=== PATIENT | female | born 1975 | race American Indian/Alaskan Native ===

== ENCOUNTER 2017-10-27 21:37 | Emergency (ER) | payer OTHER ==
[2017-10-27 21:47] VITALS: BP 152/93
[2017-10-28] MEDS ORDERED: TORADOL IM ONE (01:59)
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
== END 2017-10-28 03:13 | disposition home or self-care (01) ==
LOC: ED 21:37
DX: S39.012A Strain of muscle, fascia and tendon of lower back, initial encounter (principal); S29.012A Strain of muscle and tendon of back wall of thorax, initial encounter; R07.89 Other chest pain; K21.9 Gastro-esophageal reflux disease without esophagitis; V49.49XA Driver injured in collision with other motor vehicles in traffic accident, initial encounter; Y93.89 Activity, other specified; Y92.89 Other specified places as the place of occurrence of the external cause; Y99.8 Other external cause status
CPT/HCPCS: 96372; 99282; J1885

== ENCOUNTER 2019-02-10 14:02 | Inpatient (IN) | payer OTHER ==
[2019-02-10] MEDS ORDERED: ASPIRIN 81 MG TAB CHEW PO ONE (14:33)
[2019-02-10] MEDS ORDERED: ASPIRIN 325 MG TAB ONE (14:35)
--- NOTE | 2019-02-10 14:36 | Event Note ---
ED Screening Note Date of service: 02/10/19 Time: 14:36 ED Screening Note: Pt complains of chest pain radiating through to her back x 1 hour denies prior cardiac hx This initial assessment/diagnostic orders/clinical plan/treatment(s) is/are subject to change based on patients health status, clinical progression and re- assessment by fellow clinical providers in the ED. Further treatment and workup at subsequent clinical providers discretion. Patient/guardian urged not to elope from the ED as their condition may be serious if not clinically assessed and managed. Initial orders include: labs CXR
[2019-02-10] MEDS ORDERED: ASPIRIN 325 MG TAB PO ONE (14:53)
--- NOTE | 2019-02-10 15:08 | XRay Report ---
CHEST 2 VIEWS INDICATION: Chest Pain. COMPARISON: None. FINDINGS: Support devices: None. Heart: Within normal limits. Lungs/Pleura: No acute air space or interstitial disease. No significant pleural effusion. IMPRESSION: No acute findings. Signer Name: Thad Hinds MD Signed: 02/10/2019 3:03 PM Workstation Name: [id number]
[2019-02-10 15:34] LABS: Basophils % (Auto) 0.2 % (0.0-1.8); Eosinophils # (Auto) 0.1 K/mm3 (0.0-0.4); Eosinophils % (Auto) 0.5 % (0.0-4.3); Hematocrit 37.7 % (30.3-42.9); Hemoglobin 12.5 gm/dl (10.1-14.3); Lymphocytes # (Auto) 1.9 K/mm3 (1.2-5.4); Lymphocytes % (Auto) 17.9 % (13.4-35.0); Mean Corpuscular HGB Conc 33 % (30-34); Mean Corpuscular Volume 90 fl (79-97); Monocytes # (Auto) 0.6 K/mm3 (0.0-0.8); Monocytes % (Auto) 6.2 % (0.0-7.3); Platelet Count 336 K/mm3 (140-440); Red Blood Count 4.17 M/mm3 (3.65-5.03); Red Cell Distribution Width 14.5 % (13.2-15.2)
[2019-02-10 16:15] LABS: Alanine Aminotransferase 51 units/L (7-56); Albumin 3.7 g/dL (3.9-5); BUN/Creatinine Ratio 18; Blood Urea Nitrogen 11 mg/dL (7-17); Calcium 9.1 mg/dL (8.4-10.2); Hemolysis Index 7
--- NOTE | 2019-02-10 16:56 | Emergency Department Report ---
ED Chest Pain HPI - General Chief Complaint: Chest Pain Stated Complaint: CHEST PAIN Time Seen by Provider: 02/10/19 14:32 Source: patient Mode of arrival: Ambulatory Limitations: No Limitations - Related Data Previous Rx's Medication Instructions Recorded Last Taken Type HYDROcodone/APAP 5-325 [[place] 1 each PO Q6HR PRN #10 tablet 03/16/15 Unknown Rx 5/325] Baclofen [Lioresal] 10 mg PO TID #20 tab 10/28/17 Unknown Rx Ibuprofen [Motrin 600 MG tab] 600 mg PO Q8H PRN #30 tablet 10/28/17 Unknown Rx Allergies Allergy/AdvReac Type Severity Reaction Status Date / Time No Known Allergies Allergy Verified 09/12/14 10:06 ED Review of Systems ROS: Stated complaint: CHEST PAIN Other details as noted in HPI ED Past Medical Hx - Past Medical History Previous Medical History?: Yes Hx GERD: Yes Additional medical history: Gallstones, Vaginal delivery x 2 - Surgical History Past Surgical History?: No - Social History Smoking Status: Never Smoker - Medications Home Medications: Home Medications Medication Instructions Recorded Confirmed Last Taken Type HYDROcodone/APAP 5-325 [[place] 1 each PO Q6HR PRN #10 tablet 03/16/15 Unknown Rx 5/325] Baclofen [Lioresal] 10 mg PO TID #20 tab 10/28/17 Unknown Rx Ibuprofen [Motrin 600 MG tab] 600 mg PO Q8H PRN #30 tablet 10/28/17 Unknown Rx ED Physical Exam - General Limitations: No Limitations ED Course Vital Signs 02/10/19 14:07 Temperature 97.8 F Pulse Rate 90 Respiratory 18 Rate Blood Pressure 136/76 O2 Sat by Pulse 99 Oximetry DEL score - Del Score Age > 65: (0) No Aspirin use within the Past 7 Days: (0) No 3 or more CAD Risk Factors: (0) No 2 or more Angina events in past 24 hrs: (0) No Known CAD with more than 50% Stenosis: (0) No Elevated Cardiac Markers: (0) No ST Deviation Greater than 0.5mm: (0) No DEL Score: 0 ED Medical Decision Making - Lab Data Result diagrams: 02/10/19 15:09 02/10/19 15:09 Critical care attestation.: If time is entered above; I have spent that time in minutes in the direct care of this critically ill patient, excluding procedure time. ED Disposition Condition: Stable
[2019-02-10] MEDS ORDERED: ONDANSETRON 4 MG/2 ML INJ IV ONE (17:10)
[2019-02-10] MEDS ORDERED: SODIUM CHLORIDE 0.9% 500 ML 500 ML IV ONE (17:10)
[2019-02-10] MEDS ORDERED: MORPHINE 4 MG/1 ML INJ IV ONE ×2 (17:10→20:18)
[2019-02-10 18:44] LABS: INR 0.95 (0.87-1.13)
[2019-02-10 18:52] LABS: Alanine Aminotransferase 101 units/L (7-56); Albumin 3.6 g/dL (3.9-5); Bilirubin,Direct 0.6 mg/dL (0-0.2)
--- NOTE | 2019-02-10 19:25 | Ultrasound Report ---
ULTRASOUND ABDOMEN, COMPLETE INDICATION: ruq pain gall bladder study. COMPARISON: None available. FINDINGS: Pancreas: Normal. Abdominal Aorta: Normal. IVC: Normal. Liver: Normal. Gallbladder: Multiple gallstones. Bile ducts: Dilated. Common Bile Duct measures 12.1 mm. Right Kidney: Normal. Left Kidney: Normal. Spleen: Normal. Free fluid: None. Additional Findings: None. IMPRESSION: 1. Multiple gallstones. No wall thickening. 2. Biliary dilatation worrisome for common bile duct stone in the appropriate clinical setting. Signer Name: Thad Hinds MD Signed: 02/10/2019 7:21 PM Workstation Name: [id number]
--- NOTE | 2019-02-10 19:31 | Emergency Department Report ---
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 Presents to the ER with complaint of "gallbladder pain." Complains of substernal chest pain, [place] epigastric and right upper quadrant region, present for a few hours, intermittent, throbbing, increases with palpation, range of motion, decreases with rest and position. Occasionally the pain is so intense it takes her breath away. She indicates that she is not , denies recent travel, surgeries, oral contraceptive use. There is no complaint of headache, neck pain, lower abdominal pain, urinary symptoms, there is no extremity complaints. She also complains of right posterior flank pain. -: Gradual, hour(s) Location: chest, abdomen Radiation: abdomen Severity scale (0 -10): 3 Quality: other Consistency: other Improves with: other Worsens with: other Associated Symptoms: other - Related Data Previous Rx's Medication Instructions Recorded Last Taken Type HYDROcodone/APAP 5-325 [[place] 1 each PO Q6HR PRN #10 tablet 03/16/15 Unknown Rx 5/325] Baclofen [Lioresal] 10 mg PO TID #20 tab 10/28/17 Unknown Rx Ibuprofen [Motrin 600 MG tab] 600 mg PO Q8H PRN #30 tablet 10/28/17 Unknown Rx Allergies Allergy/AdvReac Type Severity Reaction Status Date / Time No Known Allergies Allergy Verified 09/12/14 10:06 ED Review of Systems ROS: Stated complaint: CHEST PAIN Other details as noted in HPI Constitutional: denies: fever Eyes: denies: eye discharge ENT: denies: congestion Respiratory: denies: wheezing Cardiovascular: chest pain Gastrointestinal: abdominal pain. denies: vomiting Genitourinary: denies: dysuria Musculoskeletal: back pain Skin: denies: lesions Neurological: denies: weakness Hematological/Lymphatic: denies: easy bleeding ED Past Medical Hx - Past Medical History Previous Medical History?: Yes Hx GERD: Yes Additional medical history: Gallstones, Vaginal delivery x 2 - Surgical History Past Surgical History?: No - Social History Smoking Status: Never Smoker - Medications Home Medications: Home Medications Medication Instructions Recorded Confirmed Last Taken Type HYDROcodone/APAP 5-325 [[place] 1 each PO Q6HR PRN #10 tablet 03/16/15 Unknown Rx 5/325] Baclofen [Lioresal] 10 mg PO TID #20 tab 10/28/17 Unknown Rx Ibuprofen [Motrin 600 MG tab] 600 mg PO Q8H PRN #30 tablet 10/28/17 Unknown Rx ED Physical Exam - General Limitations: No Limitations General appearance: alert, obese - Head Head exam: Present: atraumatic, normocephalic - Eye Eye exam: Present: normal appearance, EOMI. Absent: nystagmus - ENT ENT exam: Present: normal exam, normal orophraynx, mucous membranes moist, normal external ear exam - Neck Neck exam: Present: normal inspection, full ROM. Absent: tenderness, meningismus - Respiratory Respiratory exam: Present: normal lung sounds bilaterally. Absent: respiratory distress - Cardiovascular Cardiovascular Exam: Present: regular rate, normal rhythm, normal heart sounds. Absent: bradycardia, tachycardia, irregular rhythm, systolic murmur, diastolic murmur, rubs, gallop - GI/Abdominal GI/Abdominal exam: Present: soft, tenderness. Absent: distended, rigid, pulsatile mass - Extremities Exam Extremities exam: Present: normal inspection, full ROM, other (2+ pulses noted in the bilateral upper and lower extremities. The pelvis is stable. There is no long bony tenderness. The muscular compartments are soft. There is no redness, pus, streaking or erythema.). Absent: pedal edema, calf tenderness - Back Exam Back exam: Present: normal inspection, full ROM. Absent: tenderness, CVA tenderness (R), CVA tenderness (L), paraspinal tenderness, vertebral tenderness - Neurological Exam Neurological exam: Present: alert, oriented X3, normal gait, other (there is no facial droop. The tongue is midline. Extraocular movements are intact bilaterally. Speaking in full sentences. Hearing is grossly intact. 5 out of 5 strength bilateral upper and lower extremities. Sensation is intact to light touch bilateral upper and lower extremities.). Absent: motor sensory deficit - Psychiatric Psychiatric exam: Present: normal affect, normal mood - Skin Skin exam: Present: warm, dry, intact, normal color. Absent: rash ED Course Vital Signs 02/10/19 14:07 Temperature 97.8 F Pulse Rate 90 Respiratory 18 Rate Blood Pressure 136/76 O2 Sat by Pulse 99 Oximetry - Reevaluation(s) Reevaluation #1: 02/10/19 19:37 Differential diagnosis, including but not limited to: GERD, gastritis, hiatal hernia, pneumonia, biliary colic, pancreatitis, urinary tract infection Assessment and plan: 43-year-old obese female presenting with right upper quadrant pain, tenderness, reproducible chest wall pain, not tachycardic, not tachypneic, not hypoxic, no pulmonary embolism or DVT risk factors, low risk by well's criteria, perc negative Laboratories studies show nonspecific elevation in liver panel, this happened back in 2014 when the patient presented with similar symptoms, ultrasound shows dilated common bile ducts, stone in the common bile duct. We will discuss with general surgery and gastroenterology on-call. Reevaluation #2: 02/10/19 19:40 Discussed with general surgery on-call, , who agrees with plan for admission, recommends admission, IV antibiotics, gastroenterology consultation, MRCP. We will order antibiotics, discuss with GI. We will defer to inpatient team to sit up MRCP. We'll discuss with patient discussed plan of care. Unlikely to be acute coronary syndrome, troponin negative 2, EKG is unchanged 3, based off of the heart score, patient is at low risk for major first cardiac event. Reevaluation #3: 02/10/19 19:45 Discussed with gastroenterology on-call, Dr. Taylor. Agreed to this plan of c are, indicates his group will follow in consultation. Hospital physician is paced to arrange admission. Discussed plan of care with patient, she is amenable to admission. perc negative low risk by wells criteria Reevaluation #4: 02/10/19 19:47 Dr Nielson to admit ED Medical Decision Making - Lab Data Result diagrams: 02/10/19 15:09 02/10/19 15:09 Vital Signs 02/10/19 14:07 Temperature 97.8 F Pulse Rate 90 Respiratory 18 Rate Blood Pressure 136/76 O2 Sat by Pulse 99 Oximetry Lab Results 02/10/19 02/10/19 02/10/19 Range/Units 15:09 15:09 17:54 WBC 10.5 (4.5-11.0) K/mm3 RBC 4.17 (3.65-5.03) M/mm3 Hgb 12.5 (10.1-14.3) gm/dl Hct 37.7 (30.3-42.9) % MCV 90 (79-97) fl MCH 30 (28-32) pg MCHC 33 (30-34) % RDW 14.5 (13.2-15.2) % Plt Count 336 (140-440) K/mm3 Lymph % (Auto) 17.9 (13.4-35.0) % [place] % (Auto) 6.2 (0.0-7.3) % Eos % (Auto) 0.5 (0.0-4.3) % Baso % (Auto) 0.2 (0.0-1.8) % Lymph # 1.9 (1.2-5.4) K/mm3 [place] # 0.6 (0.0-0.8) K/mm3 Eos # 0.1 (0.0-0.4) K/mm3 Baso # 0.0 (0.0-0.1) K/mm3 Seg Neutrophils % 75.2 H (40.0-70.0) % Seg Neutrophils # 7.9 H (1.8-7.7) K/mm3 PT 12.8 (12.2-14.9) Sec. INR 0.95 (0.87-1.13) Sodium 138 (137-145) mmol/L Potassium 3.7 (3.6-5.0) mmol/L Chloride 103.7 (98-107) mmol/L Carbon Dioxide 22 (22-30) mmol/L Anion Gap 16 mmol/L BUN 11 (7-17) mg/dL Creatinine 0.6 L (0.7-1.2) mg/dL Estimated GFR > 60 ml/min BUN/Creatinine Ratio 18 % Glucose 118 H (65-100) mg/dL Calcium 9.1 (8.4-10.2) mg/dL Magnesium (1.7-2.3) mg/dL Total Bilirubin 0.90 (0.1-1.2) mg/dL Direct Bilirubin (0-0.2) mg/dL Indirect Bilirubin mg/dL AST 82 H (5-40) units/L ALT 51 (7-56) units/L Alkaline Phosphatase 94 (35-129) units/L Total Creatine Kinase (30-135) units/L Troponin T < 0.010 (0.00-0.029) ng/mL Total Protein 7.3 (6.3-8.2) g/dL Albumin 3.7 L (3.9-5) g/dL Albumin/Globulin Ratio 1.0 % Lipase (13-60) units/L HCG, Quant (0-4) mIU/mL 02/10/19 02/10/19 Range/Units 17:54 17:54 WBC (4.5-11.0) K/mm3 RBC (3.65-5.03) M/mm3 Hgb (10.1-14.3) gm/dl Hct (30.3-42.9) % MCV (79-97) fl MCH (28-32) pg MCHC (30-34) % RDW (13.2-15.2) % Plt Count (140-440) K/mm3 Lymph % (Auto) (13.4-35.0) % [place] % (Auto) (0.0-7.3) % Eos % (Auto) (0.0-4.3) % Baso % (Auto) (0.0-1.8) % Lymph # (1.2-5.4) K/mm3 [place] # (0.0-0.8) K/mm3 Eos # (0.0-0.4) K/mm3 Baso # (0.0-0.1) K/mm3 Seg Neutrophils % (40.0-70.0) % Seg Neutrophils # (1.8-7.7) K/mm3 PT (12.2-14.9) Sec. INR (0.87-1.13) Sodium (137-145) mmol/L Potassium (3.6-5.0) mmol/L Chloride (98-107) mmol/L Carbon Dioxide (22-30) mmol/L Anion Gap mmol/L BUN (7-17) mg/dL Creatinine (0.7-1.2) mg/dL Estimated GFR ml/min BUN/Creatinine Ratio % Glucose (65-100) mg/dL Calcium (8.4-10.2) mg/dL Magnesium 2.00 (1.7-2.3) mg/dL Total Bilirubin 1.00 (0.1-1.2) mg/dL Direct Bilirubin 0.6 H (0-0.2) mg/dL Indirect Bilirubin 0.4 mg/dL AST 155 H (5-40) units/L ALT 101 H (7-56) units/L Alkaline Phosphatase 97 (35-129) units/L Total Creatine Kinase 313 H (30-135) units/L Troponin T < 0.010 (0.00-0.029) ng/mL Total Protein 7.1 (6.3-8.2) g/dL Albumin 3.6 L (3.9-5) g/dL Albumin/Globulin Ratio 1.0 % Lipase 37 (13-60) units/L HCG, Quant < 2 (0-4) mIU/mL - EKG Data -: EKG Interpreted by [place] EKG shows normal: sinus rhythm Rate: normal - EKG Data 02/10/19 19:36 EKG #1 shows a sinus rhythm, 84 bpm, normal axis, normal intervals, unremarkable EKG, poor R-wave progression, not consistent with ST elevation myocardial infarction. EKG #2 was unchanged from prior. There is motion artifact. EKG #3 is unchanged from prior. Both/all 3 EKGs unchanged from prior EKG from 2013. There is no STEMI. - Radiology Data Radiology results: report reviewed, image reviewed Print Report Referring Physician: SUMANTH BLUM Patient Name: DIA YOUNG Date of : 1975 Sex: Female Report Date: 2019-02-10 Report Status: Finalized Findings [facility] [address] [place] [address] Ultrasound Report Signed Patient: DIA YOUNG MR#: [id number] : 1975 Acct:[id number] Age/Sex: 43 / F ADM Date: 02/10/19 Loc: ED Attending Dr: Ordering Physician: SUMANTH BLUM MD Date of Service: 02/10/19 Procedure(s): US abdomen limited Accession Number(s): [id number] cc: SUMANTH BLUM MD ULTRASOUND ABDOMEN, COMPLETE INDICATION: ruq pain gall bladder study. COMPARISON: None available. FINDINGS: Pancreas: Normal. Abdominal Aorta: Normal. IVC: Normal. Liver: Normal. Gallbladder: Multiple gallstones. Bile ducts: Dilated. Common Bile Duct measures 12.1 mm. Right Kidney: Normal. Left Kidney: Normal. Spleen: Normal. Free fluid: None. Additional Findings: None. IMPRESSION: 1. Multiple gallstones. No wall thickening. 2. Biliary dilatation worrisome for common bile duct stone in the appropriate clinical setting. Signer Name: Thad Hinds MD Signed: 02/10/2019 7:21 PM Workstation Name: [id number] Transcribed By: RAULITO Dictated By: Thad Hinds MD Electronically Authenticated By: Thad Hinds MD Signed Date/Time: 02/10/19 192 Print Report Referring Physician: LUCIANA LARSON Patient Name: DIA YOUNG Date of : 1975 Sex: Female Report Date: 2019-02-10 Report Status: Finalized Findings [address] [address] XRay Report Signed Patient: DIA YOUNG MR#: [id number] : 1975 Acct:[id number] Age/Sex: 43 / F ADM Date: 02/10/19 Loc: ED Attending Dr: Ordering Physician: LUCIANA LARSON Date of Service: 02/10/19 Procedure(s): XR chest routine 2V Accession Number(s): [id number] cc: LUCIANA LARSON Fluoro Time In Minutes: CHEST 2 VIEWS INDICATION: Chest Pain. COMPARISON: None. FINDINGS: Support devices: None. Heart: Within normal limits. Lungs/Pleura: No acute air space or interstitial disease. No significant pleural effusion. IMPRESSION: No acute findings. Signer Name: Thad Hinds MD Signed: 02/10/2019 3:03 PM Workstation Name: [id number] Transcribed By: RAULITO Dictated By: Thad Hinds MD Electronically Authenticated By: Thad Hinds MD Signed Date/Time: 02/10/19 1503 DD/ 1503 Critical care attestation.: If time is entered above; I have spent that time in minutes in the direct care of this critically ill patient, excluding procedure time. ED Disposition Clinical Impression: Common bile duct calculus, Transaminitis Disposition: DC-09 OP ADMIT IP TO THIS HOSP Is pt being admited?: Yes Condition: Good Referrals: PRIMARY CARE,MD [Primary Care Provider] - 3-5 Days
[2019-02-10] MEDS ORDERED: MORPHINE 4 MG/1 ML INJ ONE (20:08)
[2019-02-10] MEDS ORDERED: ACETAMINOPHEN 325 MG TAB PO PRN (20:10)
[2019-02-10] MEDS ORDERED: MORPHINE 2 MG/1 ML INJ IV PRN (20:14)
[2019-02-10] MEDS ORDERED: METOCLOPRAMIDE 10 MG/2 ML INJ IV PRN (20:14)
[2019-02-10] MEDS ORDERED: SODIUM CHLORIDE 0.9% 1000 ML 1,000 ML IV SCH (20:15)
--- NOTE | 2019-02-10 21:47 | History and Physical Report ---
<RUDDCORTEZ Camille - Last Filed: 02/10/19 21:33> History of Present Illness Date of examination: 02/10/19 Date of admission: 02/10/19 19:47 Chief complaint: Abdominal pain, nausea History of present illness: 43-year-old -[place]onegas[place] female with history of biliary colic, GERD, gallstones and morbid obesity who presents to [facility] with complaints of nausea, and abdominal pain since this morning. Patient states that she has been exper iencing nausea, abdominal pain and chest pain since this morning. Her abdominal pain is located in the right upper quadrant and epigastric region. The pain started out intermittently, but as the day progressed it worsened and it is now constant. She describes her abdominal pain as throbbing and rates it 10/10. Pain is aggravated with palpation and relieved with rest. Patient was asked to identify and describe chest pain she pointed to the right upper quadrant and epigastric region, and states that the pain feels similar to the last time she had gallstones. EKG unrevealing for acute ischemic abnormalities and troponins negative. Given patient's low cardiac risk factors and location of pain it is highly unlikely patient is having an acute UT. Will defer additional cardiac work-up if pain persists or worsens. Past History Past Medical History: GERD, other (Morbid obesity, biliary colic, gallstones) Past Surgical History: No surgical history Social history: lives with family. denies: smoking, alcohol abuse Family history: no significant family history Medications and Allergies Allergies Allergy/AdvReac Type Severity Reaction Status Date / Time No Known Allergies Allergy Verified 09/12/14 10:06 Active Meds: Active Medications Acetaminophen (Tylenol) 650 mg PO Q4H PRN PRN Reason: Pain MILD(1-3)/Fever >100.5/[place] Heparin Sodium (Porcine) (Heparin) 5,000 unit SUB-Q Q12HR LESLY Sodium Chloride (Nacl 0.9% 1000 Ml) 1,000 mls @ 75 mls/hr IV DIRECT LESLY Stop: 02/11/19 11:00 Levofloxacin/Dextrose (Levaquin 500mg/100ml) 500 mg in 100 mls @ 100 mls/hr IV Q24H LESLY; Protocol Metronidazole (Flagyl 500 Mg/100 Ml) 500 mg in 100 mls @ 100 mls/hr IV Q8HR LESLY; Protocol Metoclopramide HCl (Reglan) 10 mg IV Q6H PRN PRN Reason: Nausea And Vomiting Morphine Sulfate (Morphine) 2 mg IV Q4H PRN PRN Reason: Pain, Moderate (4-6) Ondansetron HCl (Zofran) 4 mg IV Q6H PRN PRN Reason: Nausea And Vomiting Pantoprazole Sodium (Protonix) 40 mg IV BID LES[facility] Sodium Chloride (Sodium Chloride Flush Syringe 10 Ml) 10 ml IV BID LES[facility] Sodium Chloride (Sodium Chloride Flush Syringe 10 Ml) 10 ml IV PRN PRN PRN Reason: LINE FLUSH Review of Systems All systems: negative Cardiovascular: chest pain Gastrointestinal: abdominal pain, nausea Exam - Physical Exam Narrative exam: Physical exam General appearance: Present: Moderate discomfort,, alert and oriented 3, obese, well-developed, adult female - EENT Eyes: Present: PERRL, EOM intact ENT: hearing intact, normal dentition - Neck Neck: Present: supple, normal ROM - Respiratory Respiratory effort: Non-labored Respiratory: Clear throughout - Cardiovascular Heart rate: 84 (bpm) Rhythm: Sinus rhythm Heart Sounds: Present: S1 & S2. Absent: rub, click - Extremities Extremities: no ischemia, pulses intact, - Peripheral Assessment Peripheral Pulses: within normal limits - Abdominal General gastrointestinal: soft, tenderness to RUQ and epigastric , normal bowel sounds - Integumentary Integumentary: Present: warm, dry - Musculoskeletal Musculoskeletal: Able to move all extremities -Neurological Neurological: CN II-XII intact - Psychiatric Psychiatric:cooperative - Constitutional Vitals: Temp Pulse Resp BP Pulse Ox 97.8 F 90 18 136/76 99 02/10/19 14:07 02/10/19 14:07 02/10/19 14:07 02/10/19 14:07 02/10/19 14:07 Results - Labs CBC & Chem 7: 02/10/19 15:09 02/10/19 15:09 Labs: Laboratory Last Values WBC 10.5 K/mm3 (4.5-11.0) 02/10/19 15:09 RBC 4.17 M/mm3 (3.65-5.03) 02/10/19 15:09 Hgb 12.5 gm/dl (10.1-14.3) 02/10/19 15:09 Hct 37.7 % (30.3-42.9) 02/10/19 15:09 MCV 90 fl (79-97) 02/10/19 15:09 MCH 30 pg (28-32) 02/10/19 15:09 MCHC 33 % (30-34) 02/10/19 15:09 RDW 14.5 % (13.2-15.2) 02/10/19 15:09 Plt Count 336 K/mm3 (140-440) 02/10/19 15:09 Lymph % (Auto) 17.9 % (13.4-35.0) 02/10/19 15:09 [place] % (Auto) 6.2 % (0.0-7.3) 02/10/19 15:09 Eos % (Auto) 0.5 % (0.0-4.3) 02/10/19 15:09 Baso % (Auto) 0.2 % (0.0-1.8) 02/10/19 15:09 Lymph # 1.9 K/mm3 (1.2-5.4) 02/10/19 15:09 [place] # 0.6 K/mm3 (0.0-0.8) 02/10/19 15:09 Eos # 0.1 K/mm3 (0.0-0.4) 02/10/19 15:09 Baso # 0.0 K/mm3 (0.0-0.1) 02/10/19 15:09 Seg Neutrophils % 75.2 % (40.0-70.0) H 02/10/19 15:09 Seg Neutrophils # 7.9 K/mm3 (1.8-7.7) H 02/10/19 15:09 PT 12.8 Sec. (12.2-14.9) 02/10/19 17:54 INR 0.95 (0.87-1.13) 02/10/19 17:54 Sodium 138 mmol/L (137-145) 02/10/19 15:09 Potassium 3.7 mmol/L (3.6-5.0) 02/10/19 15:09 Chloride 103.7 mmol/L (98-107) 02/10/19 15:09 Carbon Dioxide 22 mmol/L (22-30) 02/10/19 15:09 Anion Gap 16 mmol/L 02/10/19 15:09 BUN 11 mg/dL (7-17) 02/10/19 15:09 Creatinine 0.6 mg/dL (0.7-1.2) L 02/10/19 15:09 Estimated GFR > 60 ml/min 02/10/19 15:09 BUN/Creatinine Ratio 18 % 02/10/19 15:09 Glucose 118 mg/dL (65-100) H 02/10/19 15:09 Calcium 9.1 mg/dL (8.4-10.2) 02/10/19 15:09 Magnesium 2.00 mg/dL (1.7-2.3) 02/10/19 17:54 Total Bilirubin 1.00 mg/dL (0.1-1.2) 02/10/19 17:54 Direct Bilirubin 0.6 mg/dL (0-0.2) H 02/10/19 17:54 Indirect Bilirubin 0.4 mg/dL 02/10/19 17:54 AST 155 units/L (5-40) H 02/10/19 17:54 ALT 101 units/L (7-56) H 02/10/19 17:54 Alkaline Phosphatase 97 units/L (35-129) 02/10/19 17:54 Total Creatine Kinase 313 units/L (30-135) H 02/10/19 17:54 Troponin T < 0.010 ng/mL (0.00-0.029) 02/10/19 17:54 Total Protein 7.1 g/dL (6.3-8.2) 02/10/19 17:54 Albumin 3.6 g/dL (3.9-5) L 02/10/19 17:54 Albumin/Globulin Ratio 1.0 % 02/10/19 17:54 Lipase 37 units/L (13-60) 02/10/19 17:54 HCG, Quant < 2 mIU/mL (0-4) 02/10/19 17:54 - Imaging and Cardiology Imaging and Cardiology: CXR: FINDINGS: Support devices: None. Heart: Within normal limits. Lungs/Pleura: No acute air space or interstitial disease. No significant pleural effusion. IMPRESSION: No acute findings. ABD US: FINDINGS: Pancreas: Normal. Abdominal Aorta: Normal. IVC: Normal. Liver: Normal. Gallbladder: Multiple gallstones. Bile ducts: Dilated. Common Bile Duct measures 12.1 mm. Right Kidney: Normal. Left Kidney: Normal. Spleen: Normal. Free fluid: None. Additional Findings: None. IMPRESSION: 1. Multiple gallstones. No wall thickening. 2. Biliary dilatation worrisome for common bile duct stone in the appropriate clinical setting. Assessment and Plan Assessment and plan: 43-year-old -[place]one[place] female with history of biliary colic, GERD, gallstones and morbid obesity who presents to [facility] with complaints of nausea, and abdominal pain since this morning. Choledocholithiasis -Abdominal ultrasound showed: Multiple gallstones abd Biliary dilatation worrisome for common bile duct stone -Hx gallstones -MRCP pending -NPO -IVF -On IV abx -Continue supportive care -GI consulted -General Surgery Consulted Acute Addominal Pain -Related to Choledocholithiasis -Continue supportive care Elevated liver enzymes -AST and ALT elevated likely due to Choledocholithiasis -Will continue to monitor -GI following GERD -IV Protonix BID Morbid obesity -BMI 46.6kg -Diet and lifestyle modifications -May benefit from OP weight mgmt program DVT PPX -On Heparin Advance Directives: No VTE prophylaxis?: Chemical Plan of care discussed with patient/family: Yes <MALENA OTT - Last Filed: 02/11/19 05:29> History of Present Illness Date of admission: 02/10/19 19:47 Medications and Allergies Active Meds: Active Medications Acetaminophen (Tylenol) 650 mg PO Q4H PRN PRN Reason: Pain MILD(1-3)/Fever >100.5/[place] Heparin Sodium (Porcine) (Heparin) 5,000 unit SUB-Q Q12HR LESLY Last Admin: 02/10/19 23:56 Dose: 5,000 unit Documented by: Sodium Chloride (Nacl 0.9% 1000 Ml) 1,000 mls @ 75 mls/hr IV DIRECT LESLY Stop: 02/11/19 11:00 Levofloxacin/Dextrose (Levaquin 500mg/100ml) 500 mg in 100 mls @ 100 mls/hr IV Q24H LESLY; Protocol Metronidazole (Flagyl 500 Mg/100 Ml) 500 mg in 100 mls @ 100 mls/hr IV Q8HR LESLY; Protocol Last Admin: 02/10/19 23:54 Dose: 100 mls/hr Documented by: Metoclopramide HCl (Reglan) 10 mg IV Q6H PRN PRN Reason: Nausea And Vomiting Morphine Sulfate (Morphine) 2 mg IV Q4H PRN PRN Reason: Pain, Moderate (4-6) Last Admin: 02/10/19 22:20 Dose: 2 mg Documented by: Ondansetron HCl (Zofran) 4 mg IV Q6H PRN PRN Reason: Nausea And Vomiting Pantoprazole Sodium (Protonix) 40 mg IV BID [facility] Last Admin: 02/10/19 23:56 Dose: 40 mg Documented by: Sodium Chloride (Sodium Chloride Flush Syringe 10 Ml) 10 ml IV BID [facility] Last Admin: 02/10/19 23:56 Dose: 10 ml Documented by: Sodium Chloride (Sodium Chloride Flush Syringe 10 Ml) 10 ml IV PRN PRN PRN Reason: LINE FLUSH Exam - Constitutional Vitals: Temp Pulse Resp BP Pulse Ox 98.0 F 101 H 17 154/91 98 02/11/19 00:30 02/11/19 00:30 02/11/19 00:30 02/11/19 00:30 02/11/19 00:30 Results - Labs CBC & Chem 7: 02/10/19 15:09 02/10/19 15:09 Labs: Laboratory Last Values WBC 10.5 K/mm3 (4.5-11.0) 02/10/19 15:09 RBC 4.17 M/mm3 (3.65-5.03) 02/10/19 15:09 Hgb 12.5 gm/dl (10.1-14.3) 02/10/19 15:09 Hct 37.7 % (30.3-42.9) 02/10/19 15:09 MCV 90 fl (79-97) 02/10/19 15:09 MCH 30 pg (28-32) 02/10/19 15:09 MCHC 33 % (30-34) 02/10/19 15:09 RDW 14.5 % (13.2-15.2) 02/10/19 15:09 Plt Count 336 K/mm3 (140-440) 02/10/19 15:09 Lymph % (Auto) 17.9 % (13.4-35.0) 02/10/19 15:09 [place] % (Auto) 6.2 % (0.0-7.3) 02/10/19 15:09 Eos % (Auto) 0.5 % (0.0-4.3) 02/10/19 15:09 Baso % (Auto) 0.2 % (0.0-1.8) 02/10/19 15:09 Lymph # 1.9 K/mm3 (1.2-5.4) 02/10/19 15:09 [place] # 0.6 K/mm3 (0.0-0.8) 02/10/19 15:09 Eos # 0.1 K/mm3 (0.0-0.4) 02/10/19 15:09 Baso # 0.0 K/mm3 (0.0-0.1) 02/10/19 15:09 Seg Neutrophils % 75.2 % (40.0-70.0) H 02/10/19 15:09 Seg Neutrophils # 7.9 K/mm3 (1.8-7.7) H 02/10/19 15:09 PT 12.8 Sec. (12.2-14.9) 02/10/19 17:54 INR 0.95 (0.87-1.13) 02/10/19 17:54 Sodium 138 mmol/L (137-145) 02/10/19 15:09 Potassium 3.7 mmol/L (3.6-5.0) 02/10/19 15:09 Chloride 103.7 mmol/L (98-107) 02/10/19 15:09 Carbon Dioxide 22 mmol/L (22-30) 02/10/19 15:09 Anion Gap 16 mmol/L 02/10/19 15:09 BUN 11 mg/dL (7-17) 02/10/19 15:09 Creatinine 0.6 mg/dL (0.7-1.2) L 02/10/19 15:09 Estimated GFR > 60 ml/min 02/10/19 15:09 BUN/Creatinine Ratio 18 % 02/10/19 15:09 Glucose 118 mg/dL (65-100) H 02/10/19 15:09 Calcium 9.1 mg/dL (8.4-10.2) 02/10/19 15:09 Magnesium 2.00 mg/dL (1.7-2.3) 02/10/19 17:54 Total Bilirubin 1.00 mg/dL (0.1-1.2) 02/10/19 17:54 Direct Bilirubin 0.6 mg/dL (0-0.2) H 02/10/19 17:54 Indirect Bilirubin 0.4 mg/dL 02/10/19 17:54 AST 155 units/L (5-40) H 02/10/19 17:54 ALT 101 units/L (7-56) H 02/10/19 17:54 Alkaline Phosphatase 97 units/L (35-129) 02/10/19 17:54 Total Creatine Kinase 313 units/L (30-135) H 02/10/19 17:54 Troponin T < 0.010 ng/mL (0.00-0.029) 02/10/19 17:54 Total Protein 7.1 g/dL (6.3-8.2) 02/10/19 17:54 Albumin 3.6 g/dL (3.9-5) L 02/10/19 17:54 Albumin/Globulin Ratio 1.0 % 02/10/19 17:54 Lipase 37 units/L (13-60) 02/10/19 17:54 HCG, Quant < 2 mIU/mL (0-4) 02/10/19 17:54 Assessment and Plan Assessment and plan: Patient seen and examined, agree with plan as stated above. In addition aad cardiac enzymes
[2019-02-10] MEDS ORDERED: MORPHINE 2 MG/1 ML INJ ONE (22:14)
[2019-02-10] MEDS ORDERED: PANTOPRAZOLE 40 MG INJ IV ONE (23:46)
[2019-02-10] MEDS ORDERED: metroNIDAZOLE/NS 500 MG/100 ML 500 MG/100 ML BAG IV ONE (23:46)
[2019-02-10] MEDS ORDERED: HEPARIN 5,000 UNIT/1 ML VIAL ONE (23:47)
[2019-02-10] MEDS: metroNIDAZOLE/NS 500 MG/100 ML 500 MG/100 ML BAG IV SCH (23:54)
[2019-02-10] MEDS: PANTOPRAZOLE 40 MG INJ IV SCH (23:56)
[2019-02-10] MEDS: HEPARIN 5,000 UNIT/1 ML VIAL SUB-Q SCH (23:56)
[2019-02-11 06:21] LABS: Basophils % (Auto) 0.5 % (0.0-1.8); Eosinophils % (Auto) 0.2 % (0.0-4.3); Hematocrit 35.4 % (30.3-42.9); Hemoglobin 11.8 gm/dl (10.1-14.3); Lymphocytes # (Auto) 1.4 K/mm3 (1.2-5.4); Lymphocytes % (Auto) 18.3 % (13.4-35.0); Mean Corpuscular HGB Conc 33 % (30-34); Mean Corpuscular Volume 89 fl (79-97); Monocytes # (Auto) 0.3 K/mm3 (0.0-0.8); Monocytes % (Auto) 3.6 % (0.0-7.3); Platelet Count 326 K/mm3 (140-440); Red Blood Count 3.98 M/mm3 (3.65-5.03); Red Cell Distribution Width 14.2 % (13.2-15.2)
[2019-02-11] MEDS: metroNIDAZOLE/NS 500 MG/100 ML 500 MG/100 ML BAG IV SCH ×3 (06:23→21:58)
[2019-02-11 06:45] LABS: BUN/Creatinine Ratio 15; Blood Urea Nitrogen 9 mg/dL (7-17); Calcium 8.4 mg/dL (8.4-10.2); Hemolysis Index 4
[2019-02-11 07:13] LABS: Creatine Kinase MB 1.4 ng/mL (0.0-4.0)
--- NOTE | 2019-02-11 09:18 | Progress Note ---
Assessment and Plan Full consult dictated. 43 y/o female admitted secondary to epig abd pain. N no V GB US - stones and 12 mm CBD. no evidence of GB wall inflammation or pericholecystic fluid Non tender at present. Morbidly obese female. biliary colic. r/o choledocolithiasis no evidence of acute cholecystitis at this time. Keep NPO except for ice chips and meds awaiting MRCP findings. will follow. Chief complaint: Abdominal pain, nausea History of present illness: 43-year-old -[place] female with history of biliary colic, GERD, gallstones and morbid obesity who presents to [facility] with complaints of nausea, and abdominal pain since this morning. Patient states that she has been experiencing nausea, abdominal pain and chest pain since this morning. Her abdominal pain is located in the right upper quadrant and epigastric region. The pain started out intermittently, but as the day progressed it worsened and it is now constant. She describes her abdominal pain as throbbing and rates it 10/10. Pain is aggravated with palpation and relieved with rest. Patient was asked to identify and describe chest pain she pointed to the right upper quadrant and epigastric region, and states that the pain feels similar to the last time she had gallstones. EKG unrevealing for acute ischemic abnormalities and troponins negative. Given patient's low cardiac risk factors and location of pain it is highly unlikely patient is having an acute [place]. Will defer additional cardiac work-up if pain persists or worsens. Past History Past Medical History: GERD, other (Morbid obesity, biliary colic, gallstones) Past Surgical History: No surgical history Social history: lives with family. denies: smoking, alcohol abuse Family history: no significant family history Selected Entries 02/11/19 08:15 Temperature 98.1 F Pulse Rate 91 H Respiratory 18 Rate Blood Pressure 117/61 Laboratory Tests 02/10/19 02/11/19 17:54 05:39 WBC 7.9 Hgb 11.8 Hct 35.4 Total Bilirubin 1.00 Direct Bilirubin 0.6 H AST 155 H ALT 101 H Alkaline Phosphatase 97 Lipase 37 Objective Vital Signs - 12hr 02/10/19 02/10/19 02/10/19 21:30 21:45 22:01 Temperature Pulse Rate 88 97 H 94 H Respiratory 13 17 12 Rate Blood Pressure 173/105 170/95 146/80 O2 Sat by Pulse 100 100 100 Oximetry 01/04/20 01/04/20 01/04/20 22:15 22:30 22:45 Temperature Pulse Rate 95 H 93 H 91 H Respiratory 16 13 13 Rate Blood Pressure 158/103 152/100 167/98 O2 Sat by Pulse 100 100 100 Oximetry 02/10/19 02/10/19 02/11/19 23:00 23:15 00:21 Temperature 97.8 F Pulse Rate 88 86 86 Respiratory 13 13 13 Rate Blood Pressure 158/96 150/96 O2 Sat by Pulse 100 100 100 Oximetry 02/11/19 02/11/19 02/11/19 00:30 04:24 08:15 Temperature 98.0 F 98.0 F 98.1 F Pulse Rate 101 H 99 H 91 H Respiratory 17 17 18 Rate Blood Pressure 154/91 110/68 117/61 O2 Sat by Pulse 98 99 99 Oximetry - Labs 02/11/19 05:39 02/11/19 05:39 Diabetes panel 02/10/19 02/10/19 02/11/19 Range/Units 15:09 17:54 05:39 Sodium 138 140 (137-145) mmol/L Potassium 3.7 3.8 (3.6-5.0) mmol/L Chloride 103.7 106.1 (98-107) mmol/L Carbon Dioxide 22 23 (22-30) mmol/L BUN 11 9 (7-17) mg/dL Creatinine 0.6 L 0.6 L (0.7-1.2) mg/dL Glucose 118 H 118 H (65-100) mg/dL Calcium 9.1 8.4 (8.4-10.2) mg/dL AST 82 H 155 H (5-40) units/L ALT 51 101 H (7-56) units/L Alkaline Phosphatase 94 97 (35-129) units/L Total Protein 7.3 7.1 (6.3-8.2) g/dL Albumin 3.7 L 3.6 L (3.9-5) g/dL Calcium panel 02/10/19 02/10/19 02/11/19 Range/Units 15:09 17:54 05:39 Calcium 9.1 8.4 (8.4-10.2) mg/dL Albumin 3.7 L 3.6 L (3.9-5) g/dL Pituitary panel 02/10/19 02/11/19 Range/Units 15:09 05:39 Sodium 138 140 (137-145) mmol/L Potassium 3.7 3.8 (3.6-5.0) mmol/L Chloride 103.7 106.1 (98-107) mmol/L Carbon Dioxide 22 23 (22-30) mmol/L BUN 11 9 (7-17) mg/dL Creatinine 0.6 L 0.6 L (0.7-1.2) mg/dL Glucose 118 H 118 H (65-100) mg/dL Calcium 9.1 8.4 (8.4-10.2) mg/dL Adrenal panel 02/10/19 02/10/19 02/11/19 Range/Units 15:09 17:54 05:39 Sodium 138 140 (137-145) mmol/L Potassium 3.7 3.8 (3.6-5.0) mmol/L Chloride 103.7 106.1 (98-107) mmol/L Carbon Dioxide 22 23 (22-30) mmol/L BUN 11 9 (7-17) mg/dL Creatinine 0.6 L 0.6 L (0.7-1.2) mg/dL Glucose 118 H 118 H (65-100) mg/dL Calcium 9.1 8.4 (8.4-10.2) mg/dL Total Bilirubin 0.90 1.00 (0.1-1.2) mg/dL AST 82 H 155 H (5-40) units/L ALT 51 101 H (7-56) units/L Alkaline Phosphatase 94 97 (35-129) units/L Total Protein 7.3 7.1 (6.3-8.2) g/dL Albumin 3.7 L 3.6 L (3.9-5) g/dL
--- NOTE | 2019-02-11 10:12 | Consultation ---
REASON FOR CONSULTATION: Biliary colic, rule out choledocholithiasis. HISTORY OF PRESENT ILLNESS: The patient is a 43-year-old morbidly obese female who presented to the Emergency Room with recent onset of epigastric abdominal pain radiating to her back and chest. States some nausea, but no vomiting. PAST MEDICAL HISTORY: Negative. PAST SURGICAL HISTORY: Negative. ALLERGIES: No known allergies. MEDICATIONS: No medications. FAMILY HISTORY: Diabetes. SOCIAL HISTORY: Occasional wine intake. Denies any smoking. PHYSICAL EXAMINATION: GENERAL: At this time reveals the patient to be awake, alert, cooperative, in no acute distress. States she is feeling " Currently, sitting up, watching TV. VITAL SIGNS: Show her to be afebrile with a temperature of 98, blood pressure is 117/61, pulse of 91, respirations of 18. HEENT: Pupils are equal and reactive to light and accommodation. Sclerae are nonicteric. ABDOMEN: Examination of the abdomen reveals to be morbidly obese. There is minimal epigastric tenderness that can be elicited at this time. The rest of the abdomen is soft and nontender. LABORATORY DATA: Lab work at present includes a CBC, which shows a white count of and 7.9, H and H is 11 and 35.4. Electrolytes are essentially within normal limits. Glucose is 118. LFTs are borderline elevated including an AST of 115, ALT of 101, alkaline phosphatase is 97, total bilirubin is 1 with a direct of 0.6. Lipase is normal at 37. A gallbladder ultrasound has been performed, which reveals multiple gallstones, but no gallbladder wall thickening or pericholecystic fluid. Common bile duct is noted to be slightly dilated at 12 mm. IMPRESSION: At this time is that of a 43-year-old morbidly obese female with evidence of gallstones and borderline dilated common bile duct, but no evidence of acute cholecystitis. RECOMMENDATIONS: At this time is to keep the patient n.p.o. except for ice chips and meds. Continue empiric Levaquin. We will await MRCP findings, which I will await MRCP findings, whose study has already been ordered and apparently scheduled for Tuesday. If MRCP does indeed show choledocholithiasis, then would recommend a GI evaluation for ERCP and extraction. I will follow closely with you. Thank you very much for consultation. [facility]# [id number] IZABELLA/DIXON
[2019-02-11] MEDS: HEPARIN 5,000 UNIT/1 ML VIAL SUB-Q SCH ×2 (10:16→21:59)
--- NOTE | 2019-02-11 10:21 | Gastroenterology Consultation ---
History of Present Illness - Reason for Consult Consult date: 02/11/19 abdominal pain, dilated cbd Requesting physician: SUMANTH BLUM - History of Present Illness The patient is a 43 yo aaf who presents with abdominal pain. pt developed severe epigastric/right sided abd pain for 2-3 hours prior to admission. She has a h/o similar, less severe episodes of abd pain in the past. This first began in 2009, attributed to gallstones, but has not had recurrent pain for the past 2-3 years until prior to admission. + nausea, no emesis. denies fevers/chills. On admission, pt found to have elevation in liver enzymes with US showing dilated CBD to 12 mm. afebrile with normal wbc count and normal lipase. Past History Past Medical History: GERD, other (Morbid obesity, biliary colic, gallstones) Past Surgical History: No surgical history Social history: lives with family. denies: smoking, alcohol abuse Family history: no significant family history Medications and Allergies Allergies Allergy/AdvReac Type Severity Reaction Status Date / Time No Known Allergies Allergy Verified 09/12/14 10:06 Active Meds: Active Medications Acetaminophen (Tylenol) 650 mg PO Q4H PRN PRN Reason: Pain MILD(1-3)/Fever >100.5/[place] Heparin Sodium (Porcine) (Heparin) 5,000 unit SUB-Q Q12HR LESLY Last Admin: 02/10/19 23:56 Dose: 5,000 unit Documented by: Sodium Chloride (Nacl 0.9% 1000 Ml) 1,000 mls @ 75 mls/hr IV DIRECT LESLY Stop: 02/11/19 11:00 Levofloxacin/Dextrose (Levaquin 500mg/100ml) 500 mg in 100 mls @ 100 mls/hr IV Q24H LESLY; Protocol Metronidazole (Flagyl 500 Mg/100 Ml) 500 mg in 100 mls @ 100 mls/hr IV Q8HR LESLY; Protocol Last Admin: 02/11/19 06:23 Dose: 100 mls/hr Documented by: Metoclopramide HCl (Reglan) 10 mg IV Q6H PRN PRN Reason: Nausea And Vomiting Morphine Sulfate (Morphine) 2 mg IV Q4H PRN PRN Reason: Pain, Moderate (4-6) Last Admin: 02/10/19 22:20 Dose: 2 mg Documented by: Ondansetron HCl (Zofran) 4 mg IV Q6H PRN PRN Reason: Nausea And Vomiting Pantoprazole Sodium (Protonix) 40 mg IV BID [facility] Last Admin: 02/10/19 23:56 Dose: 40 mg Documented by: Sodium Chloride (Sodium Chloride Flush Syringe 10 Ml) 10 ml IV BID [facility] Last Admin: 02/10/19 23:56 Dose: 10 ml Documented by: Sodium Chloride (Sodium Chloride Flush Syringe 10 Ml) 10 ml IV PRN PRN PRN Reason: LINE FLUSH Reviewed/updated patient's home and current medications Review of Systems - Review of Systems All systems: negative (per HPI) Exam - Constitutional Vital Signs: Temp Pulse Resp BP Pulse Ox 98.1 F 91 H 18 117/61 99 02/11/19 08:15 02/11/19 08:15 02/11/19 08:15 02/11/19 08:15 02/11/19 08:15 General appearance: no acute distress, obese - EENT Eyes: PERRL, EOM intact - Respiratory Respiratory effort: normal Respiratory: bilateral: CTA - Cardiovascular Rhythm: regular Heart Sounds: Present: S1 & S2 Extremities: No edema, Full ROM - Gastrointestinal General gastrointestinal: Present: soft, non-tender, non-distended - Integumentary Integumentary: Present: clear, warm - Neurologic Neurological: alert and oriented x3 - Psychiatric Psychiatric: appropriate mood/affect - Labs CBC & Chem 7: 02/11/19 05:39 02/11/19 05:39 Lab Results: Laboratory Results - last 24 hr 02/10/19 02/10/19 02/10/19 15:09 15:09 17:54 WBC 10.5 RBC 4.17 Hgb 12.5 Hct 37.7 MCV 90 MCH 30 MCHC 33 RDW 14.5 Plt Count 336 Lymph % (Auto) 17.9 [place] % (Auto) 6.2 Eos % (Auto) 0.5 Baso % (Auto) 0.2 Lymph # 1.9 [place] # 0.6 Eos # 0.1 Baso # 0.0 Seg Neutrophils % 75.2 H Seg Neutrophils # 7.9 H PT 12.8 INR 0.95 Sodium 138 Potassium 3.7 Chloride 103.7 Carbon Dioxide 22 Anion Gap 16 BUN 11 Creatinine 0.6 L Estimated GFR > 60 BUN/Creatinine Ratio 18 Glucose 118 H Calcium 9.1 Magnesium Total Bilirubin 0.90 Direct Bilirubin Indirect Bilirubin AST 82 H ALT 51 Alkaline Phosphatase 94 Total Creatine Kinase CK-MB (CK-2) CK-MB (CK-2) Rel Index Troponin T < 0.010 Total Protein 7.3 Albumin 3.7 L Albumin/Globulin Ratio 1.0 Lipase HCG, Quant 02/10/19 02/10/19 02/11/19 17:54 17:54 05:39 WBC 7.9 RBC 3.98 Hgb 11.8 Hct 35.4 MCV 89 MCH 30 MCHC 33 RDW 14.2 Plt Count 326 Lymph % (Auto) 18.3 [place] % (Auto) 3.6 Eos % (Auto) 0.2 Baso % (Auto) 0.5 Lymph # 1.4 [place] # 0.3 Eos # 0.0 Baso # 0.0 Seg Neutrophils % 77.4 H Seg Neutrophils # 6.1 PT INR Sodium Potassium Chloride Carbon Dioxide Anion Gap BUN Creatinine Estimated GFR BUN/Creatinine Ratio Glucose Calcium Magnesium 2.00 Total Bilirubin 1.00 Direct Bilirubin 0.6 H Indirect Bilirubin 0.4 AST 155 H ALT 101 H Alkaline Phosphatase 97 Total Creatine Kinase 313 H CK-MB (CK-2) CK-MB (CK-2) Rel Index Troponin T < 0.010 Total Protein 7.1 Albumin 3.6 L Albumin/Globulin Ratio 1.0 Lipase 37 HCG, Quant < 2 02/11/19 02/11/19 05:39 05:39 WBC RBC Hgb Hct MCV MCH MCHC RDW Plt Count Lymph % (Auto) [place] % (Auto) Eos % (Auto) Baso % (Auto) Lymph # [place] # Eos # Baso # Seg Neutrophils % Seg Neutrophils # PT INR Sodium 140 Potassium 3.8 Chloride 106.1 Carbon Dioxide 23 Anion Gap 15 BUN 9 Creatinine 0.6 L Estimated GFR > 60 BUN/Creatinine Ratio 15 Glucose 118 H Calcium 8.4 Magnesium Total Bilirubin Direct Bilirubin Indirect Bilirubin AST ALT Alkaline Phosphatase Total Creatine Kinase 204 H CK-MB (CK-2) 1.4 CK-MB (CK-2) Rel Index 0.6 Troponin T < 0.010 Total Protein Albumin Albumin/Globulin Ratio Lipase HCG, Quant - Imaging Ultrasound: report reviewed Assessment and Plan 1. Abnormal liver enzymes 2. Dilated CBD 3. Abdominal pain -presentation suggestive of obstructive process/possible cbd stone. no cholangitis or pancreatitis. MRCP pending. will determine indication for ERCP based on mrcp results. surgery following.
[2019-02-11] MEDS: PANTOPRAZOLE 40 MG INJ IV SCH ×2 (10:33→21:58)
[2019-02-11 14:34] LABS: Creatine Kinase MB 1.5 ng/mL (0.0-4.0)
[2019-02-11] MEDS: ONDANSETRON 4 MG/2 ML INJ IV PRN (16:22)
--- NOTE | 2019-02-11 17:22 | Progress Note ---
Assessment and Plan Assessment and plan: 43-year-old -L[place] female with history of biliary colic, GERD, gallstones and morbid obesity who presents to [facility] ED with complaints of nausea, and abdominal pain since this morning. --Cholelithiasis with dilated CBD IV fluids, antiemetics, pain medications MRCP and possible ERCP if needed GI evaluation --Abdominal pain; secondary to above causes Supportive care --Transaminitis; possible choledocholithiasis Monitor transaminases, supportive cares GI following --GERD; Protonix --Morbid obesity; BMI 46.6 Advised weight fraction when medically stable Patient may benefit by bariatric surgical consultation for weight reduction When clinically stable --DVT prophylaxis; Lovenox Monitor closely and adjust management as needed Plan of care is reviewed with the patient and her nurse History Interval history: Patient seen and examined medical records reviewed Morbidly obese female patient admitted with abdominal pain and cholelithiasis Evaluation by GI, Awaiting MRCP Patient complains of mild abdominal pain and nausea Vital signs reviewed Hospitalist Physical - Constitutional Vitals: Temp Pulse Resp BP Pulse Ox 97.8 F 84 18 132/72 96 02/11/19 12:45 02/11/19 12:45 02/11/19 12:45 02/11/19 12:45 02/11/19 12:45 General appearance: Present: no acute distress, well-nourished, obese (morbidly obese) - EENT Eyes: Present: PERRL, EOM intact - Neck Neck: Present: supple, normal ROM - Respiratory Respiratory effort: normal Respiratory: bilateral: diminished, negative: rales, rhonchi, wheezing - Cardiovascular Rhythm: regular Heart Sounds: Present: S1 & S2 - Extremities Extremities: no ischemia, No edema - Abdominal General gastrointestinal: soft, non-tender, non-distended, normal bowel sounds - Integumentary Integumentary: Present: clear, warm - Psychiatric Psychiatric: appropriate mood/affect, cooperative - Neurologic Neurologic: CNII-XII intact, moves all extremities Results - Labs CBC & Chem 7: 02/11/19 05:39 02/12/19 06:23 Labs: Laboratory Last Values WBC 7.9 K/mm3 (4.5-11.0) 02/11/19 05:39 RBC 3.98 M/mm3 (3.65-5.03) 02/11/19 05:39 Hgb 11.8 gm/dl (10.1-14.3) 02/11/19 05:39 Hct 35.4 % (30.3-42.9) 02/11/19 05:39 MCV 89 fl (79-97) 02/11/19 05:39 MCH 30 pg (28-32) 02/11/19 05:39 MCHC 33 % (30-34) 02/11/19 05:39 RDW 14.2 % (13.2-15.2) 02/11/19 05:39 Plt Count 326 K/mm3 (140-440) 02/11/19 05:39 Lymph % (Auto) 18.3 % (13.4-35.0) 02/11/19 05:39 [place] % (Auto) 3.6 % (0.0-7.3) 02/11/19 05:39 Eos % (Auto) 0.2 % (0.0-4.3) 02/11/19 05:39 Baso % (Auto) 0.5 % (0.0-1.8) 02/11/19 05:39 Lymph # 1.4 K/mm3 (1.2-5.4) 02/11/19 05:39 [place] # 0.3 K/mm3 (0.0-0.8) 02/11/19 05:39 Eos # 0.0 K/mm3 (0.0-0.4) 02/11/19 05:39 Baso # 0.0 K/mm3 (0.0-0.1) 02/11/19 05:39 Seg Neutrophils % 77.4 % (40.0-70.0) H 02/11/19 05:39 Seg Neutrophils # 6.1 K/mm3 (1.8-7.7) 02/11/19 05:39 PT 12.8 Sec. (12.2-14.9) 02/10/19 17:54 INR 0.95 (0.87-1.13) 02/10/19 17:54 Sodium 140 mmol/L (137-145) 02/11/19 05:39 Potassium 3.8 mmol/L (3.6-5.0) 02/11/19 05:39 Chloride 106.1 mmol/L (98-107) 02/11/19 05:39 Carbon Dioxide 23 mmol/L (22-30) 02/11/19 05:39 Anion Gap 15 mmol/L 02/11/19 05:39 BUN 9 mg/dL (7-17) 02/11/19 05:39 Creatinine 0.6 mg/dL (0.7-1.2) L 02/11/19 05:39 Estimated GFR > 60 ml/min 02/11/19 05:39 BUN/Creatinine Ratio 15 % 02/11/19 05:39 Glucose 118 mg/dL (65-100) H 02/11/19 05:39 Calcium 8.4 mg/dL (8.4-10.2) 02/11/19 05:39 Magnesium 2.00 mg/dL (1.7-2.3) 02/10/19 17:54 Total Bilirubin 1.00 mg/dL (0.1-1.2) 02/10/19 17:54 Direct Bilirubin 0.6 mg/dL (0-0.2) H 02/10/19 17:54 Indirect Bilirubin 0.4 mg/dL 02/10/19 17:54 AST 155 units/L (5-40) H 02/10/19 17:54 ALT 101 units/L (7-56) H 02/10/19 17:54 Alkaline Phosphatase 97 units/L (35-129) 02/10/19 17:54 Total Creatine Kinase 185 units/L (30-135) H 02/11/19 12:50 CK-MB (CK-2) 1.5 ng/mL (0.0-4.0) 02/11/19 12:50 CK-MB (CK-2) Rel Index 0.8 (0-4) 02/11/19 12:50 Troponin T < 0.010 ng/mL (0.00-0.029) 02/11/19 12:50 Total Protein 7.1 g/dL (6.3-8.2) 02/10/19 17:54 Albumin 3.6 g/dL (3.9-5) L 02/10/19 17:54 Albumin/Globulin Ratio 1.0 % 02/10/19 17:54 Lipase 37 units/L (13-60) 02/10/19 17:54 HCG, Quant < 2 mIU/mL (0-4) 02/10/19 17:54 Active Medications - Current Medications Current Medications: Generic Name Dose Route Start Last Admin Trade Name Freq PRN Reason Stop Dose Admin Acetaminophen 650 mg 02/10/19 20:10 Tylenol PO Q4H PRN Pain MILD(1-3)/Fever >100.5/[place] Heparin Sodium (Porcine) 5,000 unit 02/10/19 22:00 02/11/19 10:16 Heparin SUB-Q 5,000 unit Q12HR LESLY Administration Levofloxacin/Dextrose 500 mg in 100 mls @ 100 mls/hr 02/11/19 20:00 Levaquin 500mg/100ml IV Q24H LESLY Protocol Metronidazole 500 mg in 100 mls @ 100 mls/hr 02/10/19 22:00 02/11/19 16:20 Flagyl 500 Mg/100 Ml IV 100 mls/hr Q8HR LESLY Administration Protocol Metoclopramide HCl 10 mg 02/10/19 20:14 Reglan IV Q6H PRN Nausea And Vomiting Morphine Sulfate 2 mg 02/10/19 20:14 02/10/19 22:20 Morphine IV 2 mg Q4H PRN Administration Pain, Moderate (4-6) Ondansetron HCl 4 mg 02/10/19 20:10 02/11/19 16:22 Zofran IV 4 mg Q6H PRN Administration Nausea And Vomiting Pantoprazole Sodium 40 mg 02/10/19 22:00 02/11/19 10:33 Protonix IV 40 mg BID LESLY Administration Sodium Chloride 10 ml 02/10/19 22:00 02/11/19 10:33 Sodium Chloride Flush Syringe 10 Ml IV 10 ml BID LESLY Administration Sodium Chloride 10 ml 02/10/19 20:10 Sodium Chloride Flush Syringe 10 Ml IV PRN PRN LINE FLUSH
[2019-02-12] MEDS: metroNIDAZOLE/NS 500 MG/100 ML 500 MG/100 ML BAG IV SCH ×3 (06:51→22:42)
[2019-02-12 07:14] LABS: Alanine Aminotransferase 380 units/L (7-56); Albumin 3.5 g/dL (3.9-5); BUN/Creatinine Ratio 10; Blood Urea Nitrogen 8 mg/dL (7-17); Calcium 8.5 mg/dL (8.4-10.2); Hemolysis Index 6
[2019-02-12] MEDS: HEPARIN 5,000 UNIT/1 ML VIAL SUB-Q SCH ×2 (10:40→22:43)
[2019-02-12] MEDS: PANTOPRAZOLE 40 MG INJ IV SCH ×2 (10:40→22:43)
--- NOTE | 2019-02-12 11:15 | Magnetic Resonance Report ---
MR ABDOMEN MRCP HISTORY: Choledocholithiasis, abdominal pain, back pain TECHNIQUE: Multisequence, multiplanar MRI. Thin and thick slab MRCP images. Radial MRCP images. COMPARISON: Right upper quadrant ultrasound dated 02/10/2019. FINDINGS: There are numerous small and large gallstones in the gallbladder with the largest measuring up to 1.7 cm. No evidence for gallbladder dilatation or wall thickening. The common bile duct is also dilated on MR measuring up to 9 mm. No filling defect is identified within the common bile duct. There is smo oth tapering of the distal common bile duct near the ampulla. The pancreatic duct is normal. Signal characteristics of the liver, pancreas, spleen, kidneys, adrenal glands and visualized bowel l oops are within normal limits. The aorta is normal caliber. No evidence for ascites, acute inflammation or adenopathy. IMPRESSION: Cholelithiasis. The common bile duct is dialated measuring up to 9 mm but no choledocholithiasis is demonstrated. Signer Name: Marshal Guevara Jr, MD Signed: 02/12/2019 11:11 AM Workstation Name: [id number]
--- NOTE | 2019-02-12 12:18 | Gastroenterology Progress Note ---
<OLAYINKA LLANES - Last Filed: 02/12/19 12:43> Assessment and Plan 1. Abnormal liver enzymes 2. Dilated CBD 3. Abdominal pain -afebrile -WBC, H/H, INR, plt, and lipase WNL -LFTs- T.[place] 0.80, AST 216 (trending up), ALT 380 (trending up), alk phos 125 -abd U/S showed multiple gallstones with CBD dilatation worrisome for CBD stone -presentation suggestive of obstructive process/possible cbd stone. no cholangitis or pancreatitis -surgery following -MRCP today showed cholelithiasis and dilated CBD but no evidence of choledocholithiasis -surgery following-recommend proceeding with cholecystectomy with IOC -no plan for ERCP at this time, unless IOC positive -continue to trend labs and supportive care Subjective Date of service: 02/12/19 Principal diagnosis: CBD stone Interval history: No acute distress. Objective - Constitutional Vitals: Temp Pulse Resp BP Pulse Ox 97.9 F 73 18 135/79 97 02/12/19 12:07 02/12/19 12:07 02/12/19 12:07 02/12/19 12:07 02/12/19 12:07 General appearance: no acute distress - EENT Eyes: PERRL, EOM intact ENT: hearing intact - Respiratory Respiratory effort: normal - Cardiovascular Rhythm: regular - Gastrointestinal General gastrointestinal: Present: soft, non-tender, non-distended, normal bowel sounds - Integumentary Integumentary: Present: warm, dry - Neurologic Neurological: alert and oriented x3 - Labs CBC & Chem 7: 02/11/19 05:39 02/12/19 06:23 Labs: Laboratory Results - last 24 hr 02/11/19 02/12/19 12:50 06:23 Sodium 140 Potassium 3.7 Chloride 105.0 Carbon Dioxide 23 Anion Gap 16 BUN 8 Creatinine 0.8 Estimated GFR > 60 BUN/Creatinine Ratio 10 Glucose 113 H Calcium 8.5 Total Bilirubin 0.80 AST 216 H ALT 380 H Alkaline Phosphatase 125 Total Creatine Kinase 185 H CK-MB (CK-2) 1.5 CK-MB (CK-2) Rel Index 0.8 Troponin T < 0.010 Total Protein 6.8 Albumin 3.5 L Albumin/Globulin Ratio 1.1 <RADHA GONZALEZ - Last Filed: 02/12/19 20:18> Assessment and Plan pt seen and examined; agree with note above. MrCP without signs of cbd stones. recommend IOC at time of ccy; will sign off, please call as needed or with questions. Objective - Constitutional Vitals: Temp Pulse Resp BP Pulse Ox 98.4 F 83 20 153/92 97 02/12/19 19:59 02/12/19 19:59 02/12/19 19:59 02/12/19 19:59 02/12/19 19:59 - Labs CBC & Chem 7: 02/11/19 05:39 02/12/19 06:23 Labs: Laboratory Results - last 24 hr 02/12/19 06:23 Sodium 140 Potassium 3.7 Chloride 105.0 Carbon Dioxide 23 Anion Gap 16 BUN 8 Creatinine 0.8 Estimated GFR > 60 BUN/Creatinine Ratio 10 Glucose 113 H Calcium 8.5 Total Bilirubin 0.80 AST 216 H ALT 380 H Alkaline Phosphatase 125 Total Protein 6.8 Albumin 3.5 L Albumin/Globulin Ratio 1.1
--- NOTE | 2019-02-12 13:23 | Progress Note ---
Assessment and Plan Pt feeling well without compl. Abd soft, non tender MRCP - dilated CBD but no evidence of common duct stones. possibly passed stone? surgically stable would preferably wait for duct diameter to return to wnl to reduce risk of post op duct injuries or leaks as long as pt remains asymptomatic attempt low fat cl liq diet monitor LFT's as they have risen slightly from admission Selected Entries 02/12/19 12:07 Temperature 97.9 F Pulse Rate 73 Respiratory 18 Rate Blood Pressure 135/79 [Right] Laboratory Tests 02/10/19 02/12/19 15:09 06:23 AST 82 H 216 H ALT 51 380 H Alkaline Phosphatase 94 125 Objective Vital Signs - 12hr 02/12/19 02/12/19 02/12/19 04:12 04:54 08:24 Temperature 97.9 F 98.0 F Pulse Rate 72 75 Respiratory 18 17 18 Rate Blood Pressure 128/77 135/79 Blood Pressure [Right] O2 Sat by Pulse 99 99 Oximetry 02/12/19 02/12/19 08:33 12:07 Temperature 97.5 F L 97.9 F Pulse Rate 109 H 73 Respiratory 22 18 Rate Blood Pressure 174/86 Blood Pressure 135/79 [Right] O2 Sat by Pulse 99 97 Oximetry - Labs 02/11/19 05:39 02/12/19 06:23 Diabetes panel 02/12/19 Range/Units 06:23 Sodium 140 (137-145) mmol/L Potassium 3.7 (3.6-5.0) mmol/L Chloride 105.0 (98-107) mmol/L Carbon Dioxide 23 (22-30) mmol/L BUN 8 (7-17) mg/dL Creatinine 0.8 (0.7-1.2) mg/dL Glucose 113 H (65-100) mg/dL Calcium 8.5 (8.4-10.2) mg/dL AST 216 H (5-40) units/L ALT 380 H (7-56) units/L Alkaline Phosphatase 125 (35-129) units/L Total Protein 6.8 (6.3-8.2) g/dL Albumin 3.5 L (3.9-5) g/dL Calcium panel 02/12/19 Range/Units 06:23 Calcium 8.5 (8.4-10.2) mg/dL Albumin 3.5 L (3.9-5) g/dL Pituitary panel 02/12/19 Range/Units 06:23 Sodium 140 (137-145) mmol/L Potassium 3.7 (3.6-5.0) mmol/L Chloride 105.0 (98-107) mmol/L Carbon Dioxide 23 (22-30) mmol/L BUN 8 (7-17) mg/dL Creatinine 0.8 (0.7-1.2) mg/dL Glucose 113 H (65-100) mg/dL Calcium 8.5 (8.4-10.2) mg/dL Adrenal panel 02/12/19 Range/Units 06:23 Sodium 140 (137-145) mmol/L Potassium 3.7 (3.6-5.0) mmol/L Chloride 105.0 (98-107) mmol/L Carbon Dioxide 23 (22-30) mmol/L BUN 8 (7-17) mg/dL Creatinine 0.8 (0.7-1.2) mg/dL Glucose 113 H (65-100) mg/dL Calcium 8.5 (8.4-10.2) mg/dL Total Bilirubin 0.80 (0.1-1.2) mg/dL AST 216 H (5-40) units/L ALT 380 H (7-56) units/L Alkaline Phosphatase 125 (35-129) units/L Total Protein 6.8 (6.3-8.2) g/dL Albumin 3.5 L (3.9-5) g/dL
--- NOTE | 2019-02-12 15:12 | Progress Note ---
Assessment and Plan Assessment and plan: --Acute abdominal pain; Patient's symptoms significantly improved --Cholelithiasis /dilated common bile duct MRCP; cholelithiasis and dilated CBD without choledocholithiasis Surgery evaluate the patient Possible cholecystectomy --worsening transaminases; Dilated CBD without choledocholithiasis --Morbid obesity; BMI 46.6 Advised weight reduction when medically stable --DVT prophylaxis; Lovenox GI and surgical evaluation and recommendations noted and appreciated Possible cholecystectomy tomorrow Disposition; follow clinically, discharge when medically stable. Plan of care.reviewed With the patient and her nurse History Interval history: Patient seen and examined medical records reviewed The patient feels slightly better MRCP findings noted Surgeon's evaluation and recommendations noted Patient has no new complaints Vital signs noted Hospitalist Physical - Constitutional Vitals: Temp Pulse Resp BP Pulse Ox 97.9 F 73 18 135/79 97 02/12/19 12:07 02/12/19 12:07 02/12/19 12:07 02/12/19 12:07 02/12/19 12:07 General appearance: Present: no acute distress, well-nourished, obese ( morbidly obese) - EENT Eyes: Present: PERRL, EOM intact - Neck Neck: Present: supple, normal ROM - Respiratory Respiratory effort: normal Respiratory: bilateral: diminished, negative: rales, rhonchi, wheezing - Cardiovascular Rhythm: regular Heart Sounds: Present: S1 & S2 - Extremities Extremities: no ischemia, No edema - Abdominal General gastrointestinal: soft, non-tender, non-distended, normal bowel sounds - Integumentary Integumentary: Present: clear, warm - Psychiatric Psychiatric: appropriate mood/affect, cooperative - Neurologic Neurologic: CNII-XII intact, moves all extremities Results - Labs CBC & Chem 7: 02/11/19 05:39 02/12/19 06:23 Labs: Laboratory Last Values WBC 7.9 K/mm3 (4.5-11.0) 02/11/19 05:39 RBC 3.98 M/mm3 (3.65-5.03) 02/11/19 05:39 Hgb 11.8 gm/dl (10.1-14.3) 02/11/19 05:39 Hct 35.4 % (30.3-42.9) 02/11/19 05:39 MCV 89 fl (79-97) 02/11/19 05:39 MCH 30 pg (28-32) 02/11/19 05:39 MCHC 33 % (30-34) 02/11/19 05:39 RDW 14.2 % (13.2-15.2) 02/11/19 05:39 Plt Count 326 K/mm3 (140-440) 02/11/19 05:39 Lymph % (Auto) 18.3 % (13.4-35.0) 02/11/19 05:39 [place] % (Auto) 3.6 % (0.0-7.3) 02/11/19 05:39 Eos % (Auto) 0.2 % (0.0-4.3) 02/11/19 05:39 Baso % (Auto) 0.5 % (0.0-1.8) 02/11/19 05:39 Lymph # 1.4 K/mm3 (1.2-5.4) 02/11/19 05:39 [place] # 0.3 K/mm3 (0.0-0.8) 02/11/19 05:39 Eos # 0.0 K/mm3 (0.0-0.4) 02/11/19 05:39 Baso # 0.0 K/mm3 (0.0-0.1) 02/11/19 05:39 Seg Neutrophils % 77.4 % (40.0-70.0) H 02/11/19 05:39 Seg Neutrophils # 6.1 K/mm3 (1.8-7.7) 02/11/19 05:39 PT 12.8 Sec. (12.2-14.9) 02/10/19 17:54 INR 0.95 (0.87-1.13) 02/10/19 17:54 Sodium 140 mmol/L (137-145) 02/12/19 06:23 Potassium 3.7 mmol/L (3.6-5.0) 02/12/19 06:23 Chloride 105.0 mmol/L (98-107) 02/12/19 06:23 Carbon Dioxide 23 mmol/L (22-30) 02/12/19 06:23 Anion Gap 16 mmol/L 02/12/19 06:23 BUN 8 mg/dL (7-17) 02/12/19 06:23 Creatinine 0.8 mg/dL (0.7-1.2) 02/12/19 06:23 Estimated GFR > 60 ml/min 02/12/19 06:23 BUN/Creatinine Ratio 10 % 02/12/19 06:23 Glucose 113 mg/dL (65-100) H 02/12/19 06:23 Calcium 8.5 mg/dL (8.4-10.2) 02/12/19 06:23 Magnesium 2.00 mg/dL (1.7-2.3) 02/10/19 17:54 Total Bilirubin 0.80 mg/dL (0.1-1.2) 02/12/19 06:23 Direct Bilirubin 0.6 mg/dL (0-0.2) H 02/10/19 17:54 Indirect Bilirubin 0.4 mg/dL 02/10/19 17:54 AST 216 units/L (5-40) H 02/12/19 06:23 ALT 380 units/L (7-56) H 02/12/19 06:23 Alkaline Phosphatase 125 units/L (35-129) 02/12/19 06:23 Total Creatine Kinase 185 units/L (30-135) H 02/11/19 12:50 CK-MB (CK-2) 1.5 ng/mL (0.0-4.0) 02/11/19 12:50 CK-MB (CK-2) Rel Index 0.8 (0-4) 02/11/19 12:50 Troponin T < 0.010 ng/mL (0.00-0.029) 02/11/19 12:50 Total Protein 6.8 g/dL (6.3-8.2) 02/12/19 06:23 Albumin 3.5 g/dL (3.9-5) L 02/12/19 06:23 Albumin/Globulin Ratio 1.1 % 02/12/19 06:23 Lipase 37 units/L (13-60) 02/10/19 17:54 HCG, Quant < 2 mIU/mL (0-4) 02/10/19 17:54 Active Medications - Current Medications Current Medications: Generic Name Dose Route Start Last Admin Trade Name Freq PRN Reason Stop Dose Admin Acetaminophen 650 mg 02/10/19 20:10 Tylenol PO Q4H PRN Pain MILD(1-3)/Fever >100.5/[place] Heparin Sodium (Porcine) 5,000 unit 02/10/19 22:00 02/12/19 10:40 Heparin SUB-Q 5,000 unit Q12HR LESLY Administration Levofloxacin/Dextrose 500 mg in 100 mls @ 100 mls/hr 02/11/19 20:00 02/11/19 20:57 Levaquin 500mg/100ml IV 100 mls/hr Q24H LESLY Administration Protocol Metronidazole 500 mg in 100 mls @ 100 mls/hr 02/10/19 22:00 02/12/19 06:51 Flagyl 500 Mg/100 Ml IV 100 mls/hr Q8HR LESLY Administration Protocol Metoclopramide HCl 10 mg 02/10/19 20:14 Reglan IV Q6H PRN Nausea And Vomiting Morphine Sulfate 2 mg 02/10/19 20:14 02/10/19 22:20 Morphine IV 2 mg Q4H PRN Administration Pain, Moderate (4-6) Ondansetron HCl 4 mg 02/10/19 20:10 02/11/19 16:22 Zofran IV 4 mg Q6H PRN Administration Nausea And Vomiting Pantoprazole Sodium 40 mg 02/10/19 22:00 02/12/19 10:40 Protonix IV 40 mg BID LESLY Administration Sodium Chloride 10 ml 02/10/19 22:00 02/12/19 10:40 Sodium Chloride Flush Syringe 10 Ml IV 10 ml BID LESLY Administration Sodium Chloride 10 ml 02/10/19 20:10 Sodium Chloride Flush Syringe 10 Ml IV PRN PRN LINE FLUSH
[2019-02-13] MEDS: metroNIDAZOLE/NS 500 MG/100 ML 500 MG/100 ML BAG IV SCH ×3 (05:57→21:02)
[2019-02-13 09:46] LABS: Basophils % (Auto) 0.7 % (0.0-1.8); Eosinophils # (Auto) 0.1 K/mm3 (0.0-0.4); Eosinophils % (Auto) 1.9 % (0.0-4.3); Hematocrit 34.8 % (30.3-42.9); Hemoglobin 11.6 gm/dl (10.1-14.3); Lymphocytes # (Auto) 1.6 K/mm3 (1.2-5.4); Lymphocytes % (Auto) 31.7 % (13.4-35.0); Mean Corpuscular HGB Conc 33 % (30-34); Mean Corpuscular Volume 89 fl (79-97); Monocytes # (Auto) 0.4 K/mm3 (0.0-0.8); Monocytes % (Auto) 7.8 % (0.0-7.3); Platelet Count 308 K/mm3 (140-440); Red Blood Count 3.91 M/mm3 (3.65-5.03); Red Cell Distribution Width 14.2 % (13.2-15.2)
[2019-02-13] MEDS: PANTOPRAZOLE 40 MG INJ IV SCH ×2 (09:54→21:08)
[2019-02-13] MEDS: HEPARIN 5,000 UNIT/1 ML VIAL SUB-Q SCH ×2 (09:54→21:10)
[2019-02-13 10:10] LABS: Alanine Aminotransferase 242 units/L (7-56); Albumin 3.5 g/dL (3.9-5); BUN/Creatinine Ratio 7; Blood Urea Nitrogen 5 mg/dL (7-17); Calcium 8.5 mg/dL (8.4-10.2); Hemolysis Index 15
--- NOTE | 2019-02-13 19:34 | Progress Note ---
Assessment and Plan Assessment and plan: --Acute abdominal pain; Patient's symptoms significantly improved --Cholelithiasis /dilated common bile duct MRCP; cholelithiasis and dilated CBD without choledocholithiasis Surgery evaluate the patient, no indication for cholecystectomy Advance diet as tolerated --Transaminases; if continued improvement Closely monitor --Morbid obesity; BMI 46.6 Advised weight reduction when medically stable --DVT prophylaxis;Lovenox GI and surgical evaluation and recommendations noted and appreciated Disposition; follow clinically, discharge when medically stable. Follow surgery recommendations Plan of care.reviewed With the patient and her nurse History; 43-year-old -[place] female patient was admitted through emergency room with abdominal pain initial evaluation is consistent with elevated liver enzymes, dilated CBD of 12 mm on abdominal ultrasound Evaluated by GI MRCP reveal cholelithiasis without choledocholithiasis Surgeon evaluated the patient, no surgical indications. Started on clear liquid diet advance as tolerated History Interval history: Patient examined medical records reviewed Patient feels slightly better no new complaints On full liquid diet, tolerating well Vital signs noted Hospitalist Physical - Constitutional Vitals: Temp Pulse Resp BP Pulse Ox 98.2 F 81 20 162/94 100 02/13/19 16:43 02/13/19 16:43 02/13/19 16:43 02/13/19 16:43 02/13/19 16:43 General appearance: Present: no acute distress, well-nourished, obese ( morbidly obese) - EENT Eyes: Present: PERRL, EOM intact - Neck Neck: Present: supple, normal ROM - Respiratory Respiratory effort: normal Respiratory: bilateral: diminished, negative: rales, rhonchi, wheezing - Cardiovascular Rhythm: regular Heart Sounds: Present: S1 & S2 - Extremities Extremities: no ischemia, No edema - Abdominal General gastrointestinal: soft, non-tender, non-distended, normal bowel sounds - Integumentary Integumentary: Present: clear, warm - Psychiatric Psychiatric: appropriate mood/affect, cooperative - Neurologic Neurologic: CNII-XII intact, moves all extremities Results - Labs CBC & Chem 7: 02/13/19 09:32 02/13/19 09:32 Labs: Laboratory Last Values WBC 5.2 K/mm3 (4.5-11.0) 02/13/19 09:32 RBC 3.91 M/mm3 (3.65-5.03) 02/13/19 09:32 Hgb 11.6 gm/dl (10.1-14.3) 02/13/19 09:32 Hct 34.8 % (30.3-42.9) 02/13/19 09:32 MCV 89 fl (79-97) 02/13/19 09:32 MCH 30 pg (28-32) 02/13/19 09: MCHC 33 % (30-34) 02/13/19 09:32 RDW 14.2 % (13.2-15.2) 02/13/19 09:32 Plt Count 308 K/mm3 (140-440) 02/13/19 09:32 Lymph % (Auto) 31.7 % (13.4-35.0) 02/13/19 09:32 [place] % (Auto) 7.8 % (0.0-7.3) H 02/13/19 09:32 Eos % (Auto) 1.9 % (0.0-4.3) 02/13/19 09: Baso % (Auto) 0.7 % (0.0-1.8) 02/13/19 09:32 Lymph # 1.6 K/mm3 (1.2-5.4) 02/13/19 09:32 [place] # 0.4 K/mm3 (0.0-0.8) 02/13/19 09:32 Eos # 0.1 K/mm3 (0.0-0.4) 02/13/19 09:32 Baso # 0.0 K/mm3 (0.0-0.1) 02/13/19 09:32 Seg Neutrophils % 57.9 % (40.0-70.0) 02/13/19 09: Seg Neutrophils # 3.0 K/mm3 (1.8-7.7) 02/13/19 09:32 PT 12.8 Sec. (12.2-14.9) 02/10/19 17:54 INR 0.95 (0.87-1.13) 02/10/19 17:54 Sodium 138 mmol/L (137-145) 02/13/19 09:32 Potassium 3.8 mmol/L (3.6-5.0) 02/13/19 09:32 Chloride 103.1 mmol/L (98-107) 02/13/19 09:32 Carbon Dioxide 22 mmol/L (22-30) 02/13/19 09:32 Anion Gap 17 mmol/L 02/13/19 09:32 BUN 5 mg/dL (7-17) L 02/13/19 09:32 Creatinine 0.7 mg/dL (0.7-1.2) 02/13/19 09:32 Estimated GFR > 60 ml/min 02/13/19 09:32 BUN/Creatinine Ratio 7 % 02/13/19 09:32 Glucose 107 mg/dL (65-100) H 02/13/19 09:32 Calcium 8.5 mg/dL (8.4-10.2) 02/13/19 09:32 Magnesium 2.00 mg/dL (1.7-2.3) 02/10/19 17:54 Total Bilirubin 0.60 mg/dL (0.1-1.2) 02/13/19 09:32 Direct Bilirubin 0.6 mg/dL (0-0.2) H 02/10/19 17:54 Indirect Bilirubin 0.4 mg/dL 02/10/19 17:54 AST 85 units/L (5-40) H 02/13/19 09:32 ALT 242 units/L (7-56) H 02/13/19 09:32 Alkaline Phosphatase 110 units/L (35-129) 02/13/19 09:32 Total Creatine Kinase 185 units/L (30-135) H 02/11/19 12:50 CK-MB (CK-2) 1.5 ng/mL (0.0-4.0) 02/11/19 12:50 CK-MB (CK-2) Rel Index 0.8 (0-4) 02/11/19 12:50 Troponin T < 0.010 ng/mL (0.00-0.029) 02/11/19 12:50 Total Protein 6.7 g/dL (6.3-8.2) 02/13/19 09:32 Albumin 3.5 g/dL (3.9-5) L 02/13/19 09:32 Albumin/Globulin Ratio 1.1 % 02/13/19 09:32 Lipase 37 units/L (13-60) 02/10/19 17:54 HCG, Quant < 2 mIU/mL (0-4) 02/10/19 17:54 Active Medications - Current Medications Current Medications: Generic Name Dose Route Start Last Admin Trade Name Freq PRN Reason Stop Dose Admin Acetaminophen 650 mg 02/10/19 20:10 Tylenol PO Q4H PRN Pain MILD(1-3)/Fever >100.5/[place] Heparin Sodium (Porcine) 5,000 unit 02/10/19 22:00 02/13/19 09:54 Heparin SUB-Q 5,000 unit Q12HR LESLY Administration Levofloxacin/Dextrose 500 mg in 100 mls @ 100 mls/hr 02/11/19 20:00 02/13/19 05:46 Levaquin 500mg/100ml IV Infused Q24H LESLY Infusion Protocol Metronidazole 500 mg in 100 mls @ 100 mls/hr 02/10/19 22:00 02/13/19 15:20 Flagyl 500 Mg/100 Ml IV 100 mls/hr Q8HR LESLY Administration Protocol Metoclopramide HCl 10 mg 02/10/19 20:14 02/13/19 05:57 Reglan IV 10 mg Q6H PRN Administration Nausea And Vomiting Morphine Sulfate 2 mg 02/10/19 20:14 02/10/19 22:20 Morphine IV 2 mg Q4H PRN Administration Pain, Moderate (4-6) Ondansetron HCl 4 mg 02/10/19 20:10 02/11/19 16:22 Zofran IV 4 mg Q6H PRN Administration Nausea And Vomiting Pantoprazole Sodium 40 mg 02/10/19 22:00 02/13/19 09:54 Protonix IV 40 mg BID LESLY Administration Sodium Chloride 10 ml 02/10/19 22:00 02/13/19 10:01 Sodium Chloride Flush Syringe 10 Ml IV 10 ml BID LESLY Administration Sodium Chloride 10 ml 02/10/19 20:10 Sodium Chloride Flush Syringe 10 Ml IV PRN PRN LINE FLUSH
--- NOTE | 2019-02-13 20:54 | Progress Note ---
Assessment and Plan Pt feeling well without compl. oscar full liq diet Abd soft, non tender asymptomatic lowering LFT's probably passed CBD stone rec advance to solid low fat diet in am june d/c from surg perspective if diet oscar rto I wk will schedule semi-elective lap GB in 2-3 wks as outpt Selected Entries 02/13/19 19:53 Temperature 98.1 F Pulse Rate 85 Blood Pressure 132/80 Laboratory Tests 02/12/19 02/13/19 02/13/19 06:23 09:32 09:32 WBC 5.2 Total Bilirubin 0.80 0.60 AST 216 H 85 H ALT 380 H 242 H Alkaline Phosphatase 125 110 Objective Vital Signs - 12hr 02/13/19 02/13/19 02/13/19 12:43 16:43 19:53 Temperature 97.9 F 98.2 F 98.1 F Pulse Rate 74 81 85 Respiratory 20 20 20 Rate Blood Pressure 171/95 162/94 132/80 O2 Sat by Pulse 97 100 99 Oximetry - Labs 02/13/19 09:32 02/13/19 09:32 Diabetes panel 02/13/19 Range/Units 09:32 Sodium 138 (137-145) mmol/L Potassium 3.8 (3.6-5.0) mmol/L Chloride 103.1 (98-107) mmol/L Carbon Dioxide 22 (22-30) mmol/L BUN 5 L (7-17) mg/dL Creatinine 0.7 (0.7-1.2) mg/dL Glucose 107 H (65-100) mg/dL Calcium 8.5 (8.4-10.2) mg/dL AST 85 H (5-40) units/L ALT 242 H (7-56) units/L Alkaline Phosphatase 110 (35-129) units/L Total Protein 6.7 (6.3-8.2) g/dL Albumin 3.5 L (3.9-5) g/dL Calcium panel 02/13/19 Range/Units 09:32 Calcium 8.5 (8.4-10.2) mg/dL Albumin 3.5 L (3.9-5) g/dL Pituitary panel 02/13/19 Range/Units 09:32 Sodium 138 (137-145) mmol/L Potassium 3.8 (3.6-5.0) mmol/L Chloride 103.1 (98-107) mmol/L Carbon Dioxide 22 (22-30) mmol/L BUN 5 L (7-17) mg/dL Creatinine 0.7 (0.7-1.2) mg/dL Glucose 107 H (65-100) mg/dL Calcium 8.5 (8.4-10.2) mg/dL Adrenal panel 02/13/19 Range/Units 09:32 Sodium 138 (137-145) mmol/L Potassium 3.8 (3.6-5.0) mmol/L Chloride 103.1 (98-107) mmol/L Carbon Dioxide 22 (22-30) mmol/L BUN 5 L (7-17) mg/dL Creatinine 0.7 (0.7-1.2) mg/dL Glucose 107 H (65-100) mg/dL Calcium 8.5 (8.4-10.2) mg/dL Total Bilirubin 0.60 (0.1-1.2) mg/dL AST 85 H (5-40) units/L ALT 242 H (7-56) units/L Alkaline Phosphatase 110 (35-129) units/L Total Protein 6.7 (6.3-8.2) g/dL Albumin 3.5 L (3.9-5) g/dL
[2019-02-13] MEDS: ONDANSETRON 4 MG/2 ML INJ IV PRN (21:07)
[2019-02-14] MEDS: metroNIDAZOLE/NS 500 MG/100 ML 500 MG/100 ML BAG IV SCH (05:09)
[2019-02-14] MEDS: PANTOPRAZOLE 40 MG INJ IV SCH (10:20)
[2019-02-14] MEDS: HEPARIN 5,000 UNIT/1 ML VIAL SUB-Q SCH (10:20)
[2019-02-14 12:04] LABS: Hepatitis B Surface Antigen Non-Reactive (Negative); Hepatitis C Virus Antibody Non-Reactive (NonReactive)
[2019-02-14 13:02] VITALS: BP 149/96
--- NOTE | 2019-02-14 14:25 | Discharge Summary ---
Providers - Providers Date of Admission: 02/10/19 19:47 Date of discharge: 02/14/19 Attending physician: JEN MARSHALL 02/10/19 19:31 Consult to Physician [CONS] Urgent Comment: Dr. Malin spoke with Dr. Taylor @ 1942 Consulting Provider: VICK DE JESUS Physician Instructions: Reason For Exam: cbd stone 02/10/19 19:32 Consult to Physician [CONS] Urgent Comment: Dr. Malin spoke with Dr. Servin @ 1938 Consulting Provider: OLIVA SERVIN Physician Instructions: Reason For Exam: cbd stone Primary care physician: [employer] WORKER Hospitalization Condition: Good Disposition: DC-01 TO HOME OR SELFCARE Time spent for discharge: 32 min Core Measure Documentation - Palliative Care Palliative Care/ Comfort Measures: Not Applicable - Core Measures Any of the following diagnoses?: none Exam - Constitutional Vitals: Temp Pulse Resp BP Pulse Ox 98.6 F 84 20 149/96 98 02/14/19 12:50 02/14/19 12:50 02/14/19 12:50 02/14/19 12:50 02/14/19 12:50 General appearance: Present: no acute distress, well-nourished - EENT Eyes: Present: PERRL, EOM intact - Neck Neck: Present: supple, normal ROM - Respiratory Respiratory effort: normal Respiratory: negative: rales, rhonchi, wheezing - Cardiovascular Rhythm: regular Heart Sounds: Present: S1 & S2 - Extremities Extremities: no ischemia, No edema - Abdominal General gastrointestinal: Present: soft, non-tender, non-distended, normal bowel sounds - Integumentary Integumentary: Present: clear, warm - Musculoskeletal Musculoskeletal: strength equal bilaterally - Psychiatric Psychiatric: appropriate mood/affect, cooperative - Neurologic Neurologic: CNII-XII intact, moves all extremities Plan Activity: advance as tolerated Diet: regular Additional Instructions: Advance diet as tolerated. If you have sudden abd ominal pain or nausea vomiting. Contact MD or go to emergency room. Advised weight reduction when medically stable Follow up with: MEENU DAVIS MD [Primary Care Provider] - 3-5 Days OLIVA SERVIN MD [Staff Physician] - 7 Days RADHA TAYLOR MD [Staff Physician] - 7 Days Prescriptions: Pantoprazole [Protonix TAB] 40 mg PO BID #30 tablet Ondansetron HCl [Zofran] 4 mg PO TID PRN #15 tablet PRN Reason: Nausea And Vomiting
[2019-02-15] MEDS ORDERED: PANTOPRAZOLE 40 MG TAB PO SCH (10:00)
== END 2019-02-14 17:15 | disposition home or self-care (01) | DRG 445 ==
LOC: ED 14:02 → 3A 19:47 → 3B-SURG 23:24
PROVIDERS: ADMIT Internal Medicine; ATTEND Internal Medicine
DX: K83.8 Other specified diseases of biliary tract (principal); Z68.42 Body mass index [BMI] 45.0-49.9, adult; K80.70 Calculus of gallbladder and bile duct without cholecystitis without obstruction; K21.9 Gastro-esophageal reflux disease without esophagitis; E66.01 Morbid (severe) obesity due to excess calories; Z71.6 Tobacco abuse counseling
CPT/HCPCS: 36415; 71046; 74181; 76705; 80048; 80053; 80074; 80076; 82550; 82553; 83690; 83735; 84484; 84702; 85025; 85610; 93005; 93010; G0378; C9113; J1644; J1956; J2270; J2405; J2765; J7030; J7040

== ENCOUNTER 2021-02-25 12:30 | Inpatient (IN) | payer MEDICAID ==
[2021-02-25] MEDS ORDERED: SODIUM CHLORIDE 0.9% 1000 ML 1,000 ML IV ONE (12:50)
[2021-02-25] MEDS ORDERED: MORPHINE 4 MG/1 ML INJ IV ONE ×2 (12:50→19:08)
[2021-02-25] MEDS ORDERED: ONDANSETRON 4 MG/2 ML INJ IV ONE (12:50)
--- NOTE | 2021-02-25 13:46 | Emergency Department Report ---
ED Abdominal Pain HPI - General Chief Complaint: Abdominal Pain Stated Complaint: ABD PAIN Time Seen by Provider: 02/25/21 12:39 Source: patient Mode of arrival: Ambulatory Limitations: No Limitations - History of Present Illness Initial Comments: pt is a 45 yo female who presents to the ED with c/o right upper abdominal pain that began yesterday. She states that the pain radiates to her back. She has associated nausea. She states that she had a normal bowel movement yesterday. She denies any vomiting, hematochezia, melena, hematemesis, urinary symptoms, fever. PMHx cholelithasis. no allergies to meds. Severity scale (0 -10): 10 - Related Data Previous Rx's Medication Instructions Recorded Last Taken Type Ondansetron HCl [Zofran] 4 mg PO TID PRN #15 tablet 02/14/19 Unknown Rx Pantoprazole [Protonix TAB] 40 mg PO BID #30 tablet 02/14/19 Unknown Rx Allergies Allergy/AdvReac Type Severity Reaction Status Date / Time No Known Allergies Allergy Verified 09/12/14 10:06 ED Review of Systems ROS: Stated complaint: ABD PAIN Other details as noted in HPI Comment: All other systems reviewed and negative ED Past Medical Hx - Past Medical History Hx Congestive Heart Failure: No Hx Diabetes: No Hx GERD: Yes Hx Asthma: No Hx COPD: No Additional medical history: Gallstones, Vaginal delivery x 2 - Social History Smoking Status: Never Smoker - Medications Home Medications: Home Medications Medication Instructions Recorded Confirmed Last Taken Type Ondansetron HCl [Zofran] 4 mg PO TID PRN #15 tablet 02/14/19 Unknown Rx Pantoprazole [Protonix TAB] 40 mg PO BID #30 tablet 02/14/19 Unknown Rx ED Physical Exam - General Limitations: No Limitations General appearance: alert, in no apparent distress - Head Head exam: Present: atraumatic, normocephalic - Eye Eye exam: Present: normal appearance - ENT ENT exam: Present: mucous membranes moist - Respiratory Respiratory exam: Present: normal lung sounds bilaterally. Absent: respiratory distress, wheezes, rales, rhonchi, stridor, chest wall tenderness, accessory muscle use, decreased breath sounds, prolonged expiratory - Cardiovascular Cardiovascular Exam: Present: regular rate, normal rhythm, normal heart sounds. Absent: systolic murmur, diastolic murmur, rubs, gallop - GI/Abdominal GI/Abdominal exam: Present: soft, tenderness (RUQ), normal bowel sounds. Absent: distended, guarding, rebound, rigid - Neurological Exam Neurological exam: Present: alert, oriented X3 - Psychiatric Psychiatric exam: Present: normal affect, normal mood - Skin Skin exam: Present: warm, dry, intact ED Course Vital Signs 02/25/21 02/25/21 12:37 15:29 Temperature 98.0 F Pulse Rate 100 H 90 Respiratory 15 Rate Blood Pressure 196/107 157/94 [Right] O2 Sat by Pulse 97 Oximetry - Consultations Consultation #1: 02/25/21 17:[address] Taylor, GI who recommended hospitalist admission, n.p.o. at midnight, MRCP tomorrow 02/25/21 18:[address] Mejia, hospitalist who will accept and resume care of patient, will admit to hospitalist service ED Medical Decision Making - Lab Data Result diagrams: 02/25/21 14:16 02/25/21 14:16 - Radiology Data Radiology results: report reviewed Ordering Physician: MANUEL VOGEL Date of Service: 02/25/21 Procedure(s): US abdomen limited Accession Number(s): [id number] cc: MANUEL VOGEL ULTRASOUND ABDOMEN, LIMITED (RIGHT UPPER QUADRANT) INDICATION / CLINICAL INFORMATION: RUQ. COMPARISON: None available. FINDINGS: PANCREAS: Visualized portion shows no significant abnormality. LIVER: No significant abnormality. GALLBLADDER: Gallstones without sonographic evidence of acute cholecystitis. BILE DUCTS: Common bile duct is dilated measuring 15 mm in diameter. There is no evidence of intrahepatic biliary dilatation. FREE FLUID: None. ADDITIONAL FINDINGS: None. IMPRESSION: 1. Cholelithiasis without sonographic evidence of acute cholecystitis. 2. Moderate dilatation of the common bile duct measuring 15 mm in diameter. No stones are noted within the duct and there is no intrahepatic biliary dilatation. Recommend correlation with clinical findings. If warranted, MRCP may be of benefit. Of note, patient had dilatation of common bile duct measuring 12 mm in diameter and February 2019 with subsequent MRCP that did not demonstrate choledocholithiasis. Signer Name: Ottoniel Ho MD Signed: 02/25/2021 2:21 PM Workstation Name: [id number] Transcribed By: SB Dictated By: OTTONIEL HO MD Electronically Authenticated By: OTTONIEL HO MD Signed Date/Time: 02/25/21 1421 DD/ 1418 TD/TT: - Medical Decision Making pt is a 45 yo female who presents to the ED with c/o right upper abdominal pain that began yesterday. She states that the pain radiates to her back. She has associated nausea. She states that she had a normal bowel movement yesterday. She denies any vomiting, hematochezia, melena, hematemesis, urinary symptoms, fever. PMHx cholelithasis. no allergies to meds. Initial vitals with elevated heart rate and blood pressure which improved upon repeat. On exam patient has right upper quadrant tenderness to palpation, no guarding, no rebound, no rigidity, no peritoneal signs. Labs significant for elevated LFTs and there is bilirubin present in the urine. Abdominal ultrasound 1. Cholelithiasis without sonographic evidence of acute cholecystitis. 2. Moderate dilatation of the common bile duct measuring 15 mm in diameter. No stones are noted within the duct and there is no intrahepatic biliary dilatation. Recommend correlation with clinicalfindings. If warranted, MRCP may be of benefit. Of note, patient had dilatation of common bile duct measuring 12 mm in diameter and February 2019 with subsequent MRCP that did not demonstrate choledocholithiasis. Discussed case with Dr. Taylor, GI who recommended hospitalist admission, n.p.o. at midnight, MRCP tomorrow. Discussed case with Dr. Mejia, hospitalist will accept and resume care of patient, will admit to hospital service. Discussed all findings with patient who is agreeable with plan. Critical care attestation.: If time is entered above; I have spent that time in minutes in the direct care of this critically ill patient, excluding procedure time. ED Disposition Clinical Impression: Elevated LFTs, Common bile duct dilatation Abdominal pain Qualifiers: Abdominal location: right upper quadrant Qualified Code(s): R10.11 - Right upper quadrant pain Disposition: 02 [facility]ORT TERM [facility] Is pt being admited?: Yes Does the pt Need Aspirin: No Condition: Fair Instructions: Abdominal Pain (ED) Referrals: GO CHAO MD [Primary Care Provider] - 3-5 Days Time of Disposition: 17:19 Print Language: HEBREW
--- NOTE | 2021-02-25 14:25 | Ultrasound Report ---
ULTRASOUND ABDOMEN, LIMITED (RIGHT UPPER QUADRANT) INDICATION / CLINICAL INFORMATION: RUQ. COMPARISON: None available. FINDINGS: PANCREAS: Visualized portion shows no significant abnormality. LIVER: No significant abnormality. GALLBLADDER: Gallstones without sonographic evidence of acute cholecystitis. BILE DUCTS: Common bile duct is dilated measuring 15 mm in diameter. There is no evidence of intrahep atic biliary dilatation. FREE FLUID: None. ADDITIONAL FINDINGS: None. IMPRESSION: 1. Cholelithiasis without sonographic evidence of acute cholecystitis. 2. Moderate dilatation of the common bile duct measuring 15 mm in diameter. No stones are noted with in the duct and there is no intrahepatic biliary dilatation. Recommend correlation with clinical find ings. If warranted, MRCP may be of benefit. Of note, patient had dilatation of common bile duct measu ring 12 mm in diameter and February 2019 with subsequent MRCP that did not demonstrate choledocholithi asis. Signer Name: Ottoniel Ho MD Signed: 02/25/2021 2:21 PM Workstation Name: [id number]
[2021-02-25 14:40] LABS: Basophils # (Auto) 0.1 K/mm3 (0.0-0.1); Basophils % (Auto) 0.8 % (0.0-1.8); Eosinophils # (Auto) 0.1 K/mm3 (0.0-0.4); Eosinophils % (Auto) 0.8 % (0.0-4.3); Hematocrit 35.5 % (30.3-42.9); Hemoglobin 11.7 gm/dl (10.1-14.3); Lymphocytes # (Auto) 1.5 K/mm3 (1.2-5.4); Lymphocytes % (Auto) 17.9 % (13.4-35.0); Mean Corpuscular HGB Conc 33 % (30-34); Mean Corpuscular Volume 90 fl (79-97); Monocytes # (Auto) 0.5 K/mm3 (0.0-0.8); Monocytes % (Auto) 5.9 % (0.0-7.3); Platelet Count 325 K/mm3 (140-440); Red Blood Count 3.93 M/mm3 (3.65-5.03); Red Cell Distribution Width 15.2 % (13.2-15.2)
[2021-02-25 15:00] LABS: Alanine Aminotransferase 322 units/L (7-56); Blood Urea Nitrogen 9 mg/dL (7-17); Calcium 9.2 mg/dL (8.4-10.2); Hemolysis Index 14
[2021-02-25 15:15] LABS: BUN/Creatinine Ratio 15
[2021-02-25 16:14] LABS: Bilirubin,Urine SM (Negative); Blood,Urine NEG (Negative); Color,Urine Amber (Yellow); Mucus,Urine 3+ /HPF
[2021-02-25 16:20] LABS: Ictotest,Urine Positive (Negative)
--- NOTE | 2021-02-25 19:34 | History and Physical Report ---
History of Present Illness Chief complaint: My stomach has been hurting History of present illness: 45 YO Female with Obesity Hypoventilation Syndrome, MO, Biliary Colic, GERD presents to ED for evaluation. Patient reports "my stomach has been hurting". Patient states she had experienced abdominal pain over the past 1 day with persistent symptoms over the same timeframe. Patient states the pain is 10/10, constant, radiates to her back. Pain associated with nausea and diminished oral intake. Patient transported to [facility] via private vehicle for further care and evaluation of the aforementioned symptoms. The patient was seen and evaluated in the emergency department. All lab and imaging studies reviewed. Patient underwent abdominal ultrasound and found to have biliary obstruction complicated by elevated liver function tests. GI team consulted in ED. Patient pending MRCP which is ordered and pending at time of admission. Patient denies fever, chills, chest pain, palpitation, productive cough, skin rash, recent contact, or known exposure to COVID-19. Prior admission on 02/10/2019 reviewed. All medi cation listed at time of admission has been reconciled. Advanced care planning conducted in ED. Past History Past Medical History: GERD, other (See HPI) Past Surgical History: Other (Breast reduction) Social history: single. denies: smoking, alcohol abuse, prescription drug abuse Family history: hypertension Medications and Allergies Allergies Allergy/AdvReac Type Severity Reaction Status Date / Time No Known Allergies Allergy Verified 09/12/14 10:06 Home Medications Medication Instructions Recorded Confirmed Last Taken Type Ondansetron HCl [Zofran] 4 mg PO TID PRN #15 tablet 02/14/19 Unknown Rx Pantoprazole [Protonix TAB] 40 mg PO BID #30 tablet 02/14/19 Unknown Rx Review of Systems Constitutional: no weight loss, no weight gain, no fever, no chills Ears, nose, mouth and throat: no ear pain, no ear discharge, no tinnitis, no nose pain Breasts: no change in shape, no swelling, no mass Cardiovascular: no chest pain, no orthopnea, no palpitations, no edema, no syncope Respiratory: no excessive sputum Gastrointestinal: abdominal pain, nausea, no vomiting, no diarrhea, no constipation, no BRBPR Genitourinary Female: no pelvic pain, no flank pain, no dysuria, no urinary frequency, no urgency Rectal: no pain, no incontinence, no bleeding Musculoskeletal: no neck stiffness, no neck pain, no shooting arm pain Integumentary: no rash, no pruritis, no sores, no wounds, no jaundice Neurological: no head injury, no transient paralysis, no weakness, no numbness, no syncope, no ataxia Psychiatric: no anxiety, no change in sleep habits, no insomnia, no change in appetite, no change in libido Endocrine: no cold intolerance, no polyphagia, no excessive thirst, no polydipsia, no nocturia Hematologic/Lymphatic: no easy bruising, no easy bleeding Allergic/Immunologic: no urticaria, no allergic rhinitis Exam - Constitutional Vitals: Temp Pulse Resp BP Pulse Ox 98.0 F 90 15 157/94 97 02/25/21 12:37 02/25/21 15:29 02/25/21 12:37 02/25/21 15:29 02/25/21 12:37 General appearance: Present: mild distress, obese - EENT Eyes: Present: PERRL ENT: hearing intact, clear oral mucosa - Neck Neck: Present: supple, normal ROM - Respiratory Respiratory effort: normal Respiratory: bilateral: CTA - Cardiovascular Heart Sounds: Present: S1 & S2. Absent: rub, click - Extremities Extremities: pulses symmetrical, No edema Peripheral Pulses: within normal limits - Abdominal General gastrointestinal: Present: soft, non-tender, non-distended, normal bowel sounds Female genitourinary: Present: normal - Integumentary Integumentary: Present: clear, warm, dry - Musculoskeletal Musculoskeletal: gait normal, strength equal bilaterally - Psychiatric Psychiatric: appropriate mood/affect, intact judgment & insight - Neurologic Neurologic: CNII-XII intact, moves all extremities Results - Labs CBC & Chem 7: 02/25/21 14:16 02/25/21 14:16 Labs: Abnormal lab results 02/25/21 02/25/21 Range/Units 14:16 14:16 Seg Neutrophils % 74.6 H (40.0-70.0) % Glucose 112 H (65-100) mg/dL Total Bilirubin 3.00 H (0.1-1.2) mg/dL AST 259 H (5-40) units/L ALT 322 H (7-56) units/L Alkaline Phosphatase 137 H (35-129) units/L Lipase 70 H (13-60) units/L Assessment and Plan - Patient Problems (1) Biliary obstruction Current Visit: Yes Status: Acute Plan to address problem: GI team consulted, abdominal ultrasound, MRCP in a.m. as per GI team, supportive care, continue medical management. Further care and evaluation as per GI team. Bowel rest, IV fluid resuscitation, pain control. (2) Obesity hypoventilation syndrome Current Visit: Yes Status: Acute Plan to address problem: Balanced diet, increase physical activity discharge, outpatient pulmonary follow-up for sleep study, outpatient bariatric surgery evaluation (3) Elevated LFTs Current Visit: Yes Status: Acute Plan to address problem: CMP, repeat CMP in a.m., supportive care. (4) DVT prophylaxis Current Visit: Yes Status: Acute Plan to address problem: SCD to bilateral lower extremities while in bed, patient is ambulatory (5) Advance care planning Current Visit: Yes Status: Acute Plan to address problem: Disease education conducted, care plan of progress, diagnosis discussed, prognosis discussed, patient is full code. Patient acknowledges understanding and agreement with care plan, +30 minutes.
[2021-02-25] MEDS ORDERED: IBUPROFEN 600 MG TAB PO PRN (19:36)
[2021-02-25] MEDS ORDERED: ALBUTEROL 2.5 MG/3 ML NEBU IH PRN (19:36)
[2021-02-25] MEDS ORDERED: HYDROmorphone 1 MG/1 ML INJ IV PRN (19:36)
[2021-02-25] MEDS ORDERED: ONDANSETRON 4 MG/2 ML INJ IV PRN (19:36)
[2021-02-26] MEDS: PANTOPRAZOLE 40 MG TAB PO SCH ×3 (01:03→22:03)
[2021-02-26 04:09] LABS: Alanine Aminotransferase 345 units/L (7-56); Albumin 3.8 g/dL (3.9-5); Blood Urea Nitrogen 9 mg/dL (7-17); Calcium 8.5 mg/dL (8.4-10.2); Hemolysis Index 9
[2021-02-26 04:21] LABS: BUN/Creatinine Ratio 15
[2021-02-26] MEDS: MORPHINE 2 MG/1 ML INJ IV PRN (04:58)
--- NOTE | 2021-02-26 10:43 | Magnetic Resonance Report ---
MR abdomen MRCP INDICATION / CLINICAL INFORMATION: Right upper quadrant abdominal pain, elevated LFTs, enlarged CBD. TECHNIQUE: Multiplanar, multisequence MR images were obtained. Routine MRI of the abdomen with MRCP protocol COMPARISON: None available. FINDINGS: Innumerable gallstones are identified throughout the gallbladder lumen. No significant gallbladder wa ll thickening is identified. There is moderate to severe dilatation of the common bile duct measuring 1.6 cm in diameter. There is a tiny focal 2 mm filling defect within the distal common bile duct con cerning for choledocholithiasis. The spleen, pancreas adrenal glands and kidneys are unremarkable. There is evidence of anasarca and s ubcutaneous fluid identified along the lateral chest fajardo and lateral upper abdomen bilaterally IMPRESSION: 1. Severe dilatation of the common bile duct measuring up to 1.6 cm in diameter. Innumerable gallston es are identified throughout the gallbladder lumen and there is a tiny 2 mm filling defect within the distal common bile duct suspicious for choledocholithiasis. Signer Name: Cheo Sims MD Signed: 02/26/2021 10:38 AM Workstation Name: [id number]
[2021-02-26] MEDS: HYDROmorphone 1 MG/1 ML INJ IV PRN ×2 (16:10→22:03)
--- NOTE | 2021-02-26 18:55 | Gastroenterology Consultation ---
History of Present Illness - Reason for Consult Consult date: 02/26/21 Gallstones, RUQ Pain Requesting physician: ANDREW SHEA - History of Present Illness The patient is a 45 yo female admitted with gallstones. She has known about this since at least 2019, but this time, her liver enzymes were elevated more than her prior attack. The current symptoms have improved since admit (less N, no V, and pain is minimal while NPO). She has no fevers. She was supposed to get her GB out in 2019 but did not complete this (lack of insurance). There is no family history of GB disease. She has had no prior abdominal surgery. She has had no fevers or chills since admission. Past History Past Medical History: GERD, other (Obesity, Gallstones) Past Surgical History: Other (Breast reduction) Social history: single. denies: smoking, alcohol abuse, prescription drug abuse Family history: hypertension Medications and Allergies Allergies Allergy/AdvReac Type Severity Reaction Status Date / Time No Known Allergies Allergy Verified 09/12/14 10:06 Home Medications Medication Instructions Recorded Confirmed Last Taken Type Ondansetron HCl [Zofran] 4 mg PO TID PRN #15 tablet 02/14/19 Unknown Rx Pantoprazole [Protonix TAB] 40 mg PO BID #30 tablet 02/14/19 Unknown Rx Active Meds: Active Medications Albuterol (Albuterol 2.5 Mg/3 Ml Nebu) 2.5 mg IH Q4HRT PRN PRN Reason: Shortness Of Breath Hydromorphone HCl (Hydromorphone 1 Mg/1 Ml Inj) 0.5 mg IV Q6HR PRN PRN Reason: Pain , Severe (7-10) Last Admin: 02/26/21 16:10 Dose: 0.5 mg Ibuprofen (Ibuprofen 600 Mg Tab) 600 mg PO Q6H PRN PRN Reason: Pain, Mild (1-3) Morphine Sulfate (Morphine 2 Mg/1 Ml Inj) 2 mg IV Q8H PRN PRN Reason: Pain, Moderate (4-6) Last Admin: 02/26/21 04:58 Dose: 2 mg Ondansetron HCl (Ondansetron 4 Mg/2 Ml Inj) 4 mg IV Q8H PRN PRN Reason: Nausea And Vomiting Pantoprazole Sodium (Pantoprazole 40 Mg Tab) 40 mg PO BID LESLY Last Admin: 02/26/21 09:12 Dose: 40 mg Sodium Chloride (Sodium Chloride 0.9% 10 Ml Flush Syringe) 10 ml IV BID [facility] Last Admin: 02/26/21 09:13 Dose: 10 ml Sodium Chloride (Sodium Chloride 0.9% 10 Ml Flush Syringe) 10 ml IV PRN PRN PRN Reason: LINE FLUSH I HAVE REVIEWED/RECONCILED MEDICATIONS Review of Systems - Review of Systems All systems: negative (as noted in the HPI.) Exam - Constitutional Vital Signs: Temp Pulse Resp BP Pulse Ox 97.9 F 92 H 18 151/100 100 02/26/21 08:24 02/26/21 12:23 02/26/21 08:24 02/26/21 12:23 02/26/21 12:23 General appearance: no acute distress - EENT Eyes: PERRL, EOM intact ENT: hearing intact, clear oral mucosa - Neck Neck: supple, normal ROM - Respiratory Respiratory effort: normal Respiratory: bilateral: CTA - Cardiovascular Rhythm: regular Heart Sounds: Present: S1 & S2 Extremities: no ischemia, No edema - Gastrointestinal General gastrointestinal: Present: soft, tender (Mild RUQ tenderness), non- distended - Integumentary Integumentary: Present: clear, warm, dry - Neurologic Neurological: alert and oriented x3 - Psychiatric Psychiatric: appropriate mood/affect - Labs CBC & Chem 7: 02/25/21 14:16 02/26/21 02:57 Lab Results: Laboratory Results - last 24 hr 02/26/21 02/26/21 02:57 18:14 Sodium 139 Potassium 3.9 Chloride 104.4 Carbon Dioxide 23 Anion Gap 16 BUN 9 Creatinine 0.6 Estimated GFR > 60 BUN/Creatinine Ratio 15 Glucose 126 H POC Glucose 95 Calcium 8.5 Total Bilirubin 3.30 H AST 247 H ALT 345 H Alkaline Phosphatase 147 H Total Protein 7.0 Albumin 3.8 L Albumin/Globulin Ratio 1.2 Assessment and Plan - Patient Problems (1) Choledocholithiasis with chronic cholecystitis Current Visit: Yes Status: Acute Plan to address problem: - The MRCP today shows a small GS with dilation of the CBD, 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 - No need for antibiotics since afebrile and WBC WNL. - Will consult surgery for CCY after ERCP. - NPO after Mn; risks/benefits of ERCP explained to patient.
[2021-02-27] MEDS: MORPHINE 2 MG/1 ML INJ IV PRN (02:02)
[2021-02-27] MEDS: HYDROmorphone 1 MG/1 ML INJ IV PRN ×2 (04:30→09:24)
[2021-02-27] MEDS: PANTOPRAZOLE 40 MG TAB PO SCH ×2 (09:35→22:30)
[2021-02-27] MEDS ORDERED: GLUCAGON (HUMAN RECOMBINANT) 1 MG/ML INJ ONE (10:29)
[2021-02-27] MEDS ORDERED: SODIUM CHLORIDE 0.9% 1000 ML 1,000 ML ONE (10:29)
[2021-02-27] MEDS ORDERED: SODIUM CHLORIDE 0.9% 100 ML ONE (10:35)
[2021-02-27] MEDS ORDERED: WATER FOR IRRIG STERILE 250 ML BOTTLE IR ONE (10:36)
[2021-02-27] MEDS ORDERED: WATER FOR IRRIG STERILE 1,000 ML BOTTLE ONE (10:36)
[2021-02-27] MEDS ORDERED: KETAMINE/STERILE WATER 50 MG/ML SYRINGE ONE (11:34)
[2021-02-27] MEDS ORDERED: MIDAZOLAM 2 MG/2 ML INJ ONE (11:34)
[2021-02-27] MEDS ORDERED: LIDOCAINE MPF (2%) 20 MG/1 ML VIAL 5 ML ONE ×2 (11:34→17:43)
[2021-02-27] MEDS ORDERED: propofoL 200 MG/20 ML VIAL IV ONE ×4 (11:34→17:44)
[2021-02-27] MEDS ORDERED: ESMOLOL 100 MG/10 ML INJ IV ONE (12:14)
[2021-02-27] MEDS ORDERED: GLUCAGON (HUMAN RECOMBINANT) 1 MG/ML INJ IV ONE (12:23)
[2021-02-27] MEDS ORDERED: GLYCOPYRROLATE 0.4 MG/2 ML INJ ONE ×2 (12:28→19:20)
--- NOTE | 2021-02-27 12:59 | Post Operative Note ---
Pre-op diagnosis: Abnl MRCP Post-op diagnosis: other (Ampullary stenosis) Findings: 1. Normal ampulla 2. PD cannulated with [employer] tome/0.035 guidewire - Precut sphincterotomy made 3. CBD cannulated wit [employer] tome/0.035 guidewire - Sphincterotomy extended - CBD dilated to 15mm with possible distal filling defect on cholongiogram - 9mm balloon swept through x 1 without removal of stone and normal cholangiogram at end of procedure Procedure: ERCP with biliary sphincterotomy and balloon sweep of CBD Anesthesia: MAC Surgeon: VICK DE JESUS Estimated blood loss: minimal Pathology: none Specimen disposition: other (N/A) Condition: stable Disposition: floor (Recs: 1. Clear liquid diet. 2. Surgical consult for gallstones. 3. Continue IV fluids, but no need for antibiotics since no retained gallstone in CBD.)
--- NOTE | 2021-02-27 13:29 | Operative Report ---
DATE OF SURGERY: 02/27/2021 PROCEDURE PERFORMED: Endoscopic retrograde cholangiopancreatography with biliary sphincterotomy and balloon sweeping of the common bile duct. PREOPERATIVE DIAGNOSIS: Abnormal MRI with possible choledocholithiasis. POSTOPERATIVE DIAGNOSIS: Ampullary stenosis. ENDOSCOPIST: Tayo Rayo M.D. INSTRUMENT: The [employer] video endoscope. MEDICATIONS: MAC anesthesia by anesthesia services. COMPLICATIONS: No apparent complications. ESTIMATED BLOOD LOSS: Minimal. SPECIMENS: None. IMPLANTS: None. ASSISTANTS: None. CONDITION AT COMPLETION: Stable. DESCRIPTION OF PROCEDURE: The patient was informed of the risks and benefits of the procedure. She signed the informed consent to proceed. She was placed in the prone position. The above sedative medications were given. Her vital signs remained stable throughout the procedure. The instrument was advanced from the mouth to the second portion of the duodenum under direct visualization. At that point, the bowel was insufflated. The ampulla was normal in shape and size. We initially cannulated the pancreatic duct using a [employer] sphincterotome and a 0.035 guidewire, but could not obtain good/deep cannulation. We then exchanged for a [employer] sphincterotome and a 0.035 guidewire. The pancreatic duct was cannulated deeply and a medium size precut sphincterotomy was performed. Upon repositioning of the catheter, we were able to cannulate the common bile duct using the [employer] sphincterotome and the 0.035 guidewire. The sphincterotomy was extended and a cholangiogram was obtained. The common bile duct was dilated to approximately 15 mm and there was a possible distal filling defect on the cholangiogram. We swept the common hepatic and common bile duct with a 9 mm balloon with no evidence of a stone, which was presumably an air bubble; there was a normal cholangiogram at the end of the procedure. The procedure was then terminated. FINDINGS: 1. Normal ampulla. 2. Pancreatic duct was cannulated with a [employer] sphincterotome and a 0.035 guidewire. A. Median precut sphincterotomy was made. 3. The common bile duct was cannulated with a [employer] sphincterotome and a 0.035 guidewire. A. The sphincterotomy was extended to medium size. B. The common bile duct was dilated to 15 mm with a possible distal filling defect and the cholangiogram. C. A 9 mm balloon was swept once through the common hepatic and common bile duct with removal of an air bubble, but no stone and a normal cholangiogram at the end of the procedure. RECOMMENDATIONS: 1. Clear liquid diet. 2. Surgical consult for gallstones and cholecystitis. 3. Continue IV fluids, but no need for antibiotics since there was no retained gallstone in the common bile duct. TID: [id number] RECEIPT: [id number] SABA/FORTUNATO
--- NOTE | 2021-02-27 13:41 | Anesthesia Consultation ---
Anesthesia Consult and Med Hx Date of service: 02/27/21 - Airway Anesthetic Teeth Evaluation: Good ROM Head & Neck: Adequate Mental/Hyoid Distance: Adequate Mallampati Class: Class II Intubation Access Assessment: Probably Good - Pulmonary Exam CTA: Yes - Cardiac Exam Cardiac Exam: RRR - Pre-Operative Health Status ASA Pre-Surgery Classification: ASA3 Proposed Anesthetic Plan: MAC - Pulmonary Hx Smoking: No Hx Asthma: No COPD: No Hx Pneumonia: No Hx Sleep Apnea: Yes ([facility] ) - Cardiovascular System Hx Hypertension: Yes Hx Heart Attack/AMI: No - Central Nervous System Hx Neuromuscular Disorder: No - Gastrointestinal Hx Ulcer: No Hx Gastroesophageal Reflux Disease: Yes - Endocrine Hx End Stage Renal Disease: No Hx Non-Insulin Dependent Diabetes: No Hx Thyroid Disease: No - Hematic Hx Anemia: No Hx Sickle Cell Disease: No - Other Systems Hx Alcohol Use: No Hx Substance Use: No Hx Cancer: No Hx Obesity: Yes (BMI 43) - Additional Comments Anesthesia Medical History Comments: No hx of anesthesia complications
--- NOTE | 2021-02-27 13:42 | Anesthesia Day of Surgery ---
Anesthesia Day of Surgery - Day of Surgery Patient Examined: Yes Patient H&P Reviewed: Yes Patient is NPO: Yes
--- NOTE | 2021-02-27 15:10 | Fluoroscopy Report ---
ERCP Indication: Evaluate biliary ductal dilatation with potential choledocholithiasis on recent MRI Impression: 10 images of the right upper quadrant were submitted for ERCP. CBD was cannulated and 5 0 mL of Omnipaque 300 was utilized to evaluate the biliary tree. Balloon was used. No stones identifi ed. The colostomy was performed. Fluoroscopic time: 1.1 minutes Signer Name: Mark Smith MD Signed: 02/27/2021 3:06 PM Workstation Name: [id number]
--- NOTE | 2021-02-27 15:23 | Post Anesthesia Evaluation ---
- Post Anesthesia Evaluation Patient Participated: Yes Airway Patent: Yes Stable Respiratory Function: Yes Nausea/Vomiting: No Temp > 96.8F: Yes Pain Manageable: Yes Adequeate Hydration: Yes Anesthesia Complications: No Block Receding Appropriately: Not Applicable Patient on Ventilator: No
--- NOTE | 2021-02-27 16:44 | Consultation ---
History of Present Illness Consult date: 02/27/21 Reason for consult: gallstones - History of present illness History of present illness: 45 YO Female with Obesity Hypoventilation Syndrome, MO, Biliary Colic, GERD presents to ED for evaluation. Patient reports "my stomach has been hurting". Patient states she had experienced abdominal pain over the past 1 day with persistent symptoms over the same timeframe. Patient states the pain is 10/10, constant, radiates to her back. Pain associated with nausea and diminished oral intake. Patient transported to [facility] via private vehicle for further care and evaluation of the aforementioned symptoms. The patient was seen and evaluated in the emergency department. All lab and imaging studies reviewed. Patient underwent abdominal ultrasound and found to have biliary obstruction complicated by elevated liver function tests. GI team consulted in ED. ERCP completed today 02/27/2021 and no retained common duct stones are found. Patient is evaluated at the bedside and is continued to be n.p.o. she requests lap jeramy for this evening to avoid any further pain or potential common bile duct stones. Past History Past Medical History: GERD, other (Obesity, Gallstones) Past Surgical History: Other (Breast reduction) Social history: single. denies: smoking, alcohol abuse, prescription drug abuse Family history: hypertension Medications and Allergies Allergies Allergy/AdvReac Type Severity Reaction Status Date / Time No Known Allergies Allergy Verified 09/12/14 10:06 Home Medications Medication Instructions Recorded Confirmed Last Taken Type Ondansetron HCl [Zofran] 4 mg PO TID PRN #15 tablet 02/14/19 Unknown Rx Pantoprazole [Protonix TAB] 40 mg PO BID #30 tablet 02/14/19 Unknown Rx Active Meds: Active Medications Albuterol (Albuterol 2.5 Mg/3 Ml Nebu) 2.5 mg IH Q4HRT PRN PRN Reason: Shortness Of Breath Hydromorphone HCl (Hydromorphone 1 Mg/1 Ml Inj) 0.5 mg IV Q6HR PRN PRN Reason: Pain , Severe (7-10) Last Admin: 02/27/21 09:24 Dose: 0.5 mg Ibuprofen (Ibuprofen 600 Mg Tab) 600 mg PO Q6H PRN PRN Reason: Pain, Mild (1-3) Morphine Sulfate (Morphine 2 Mg/1 Ml Inj) 2 mg IV Q8H PRN PRN Reason: Pain, Moderate (4-6) Last Admin: 02/27/21 02:02 Dose: 2 mg Ondansetron HCl (Ondansetron 4 Mg/2 Ml Inj) 4 mg IV Q8H PRN PRN Reason: Nausea And Vomiting Last Admin: 02/27/21 04:34 Dose: 4 mg Pantoprazole Sodium (Pantoprazole 40 Mg Tab) 40 mg PO BID [facility] Last Admin: 02/27/21 09:35 Dose: 40 mg Sodium Chloride (Sodium Chloride 0.9% 10 Ml Flush Syringe) 10 ml IV BID [facility] Last Admin: 02/27/21 09:28 Dose: 10 ml Sodium Chloride (Sodium Chloride 0.9% 10 Ml Flush Syringe) 10 ml IV PRN PRN PRN Reason: LINE FLUSH Exam Vital Signs Temp Pulse Resp BP Pulse Ox 98.0 F 100 H 15 196/107 97 02/25/21 12:37 02/25/21 12:37 02/25/21 12:37 02/25/21 12:37 02/25/21 12:37 - General physical appearance Positive: well developed - Eyes Positive: PERRL - Neck Positive: no masses, no bruits, trachea midline - Cardiovascular Rhythm: regular - Extremities Extremities: no ischemia, No edema - Abdomen Abdomen: Present: soft, tender, bowel sounds normal. Absent: guarding, rigid Hernia: none - Integumentary no rash - Neurologic Neurologic: alert and oriented to time, place and person, motor strength and sensation are grossly intact, CN II-XII intact Results - Labs 02/25/21 14:16 02/26/21 02:57 Assessment and Plan Patient status post ERCP for dilated common bile duct and cholecystitis with cholelithiasis. She is for laparoscopic cholecystectomy this evening. We will continue to follow with you postoperatively
[2021-02-27] MEDS ORDERED: LACTATED RINGERS 1,000 ML ONE ×2 (17:24→19:19)
[2021-02-27] MEDS ORDERED: HYDROmorphone 1 MG/1 ML INJ IV PRN ×2 (17:31)
[2021-02-27] MEDS ORDERED: ONDANSETRON 4 MG/2 ML INJ IV PRN (17:31)
[2021-02-27] MEDS ORDERED: ROCURONIUM 50 MG/5 ML INJ IV ONE ×2 (17:43→19:21)
[2021-02-27] MEDS ORDERED: dexAMETHasone 20 MG/5 ML VIAL ONE (17:43)
[2021-02-27] MEDS ORDERED: ceFAZolin 1 GM VIAL ONE ×2 (18:02)
[2021-02-27] MEDS ORDERED: .SODIUM CHLORIDE 0.9% IRRIG SOLN 3000 ML IR ONE (18:49)
[2021-02-27] MEDS ORDERED: LIDOCAINE (1%) 10 MG/1 ML VIAL 20 ML MDV INFILTRATI ONE (18:50)
[2021-02-27] MEDS ORDERED: BUPIVACAINE/PF (0.5%) 5 MG/1 ML 10 ML VIAL INFILTRATI ONE (18:50)
[2021-02-27] MEDS ORDERED: NEOSTIGMINE 10MG/10 ML INJ MDV ONE (19:20)
--- NOTE | 2021-02-27 19:39 | Operative Report ---
Operative Report Operative Report: Date:02/27/21 Preop diagnosis: Acute cholecystitis with cholelithiasis Postop diagnosis: same Procedure: Laparoscopic cholecystectomy without cholangiogram Surgeon: Dr. Jeffery Shoe Cobbler: Dr. Chapman Anesthesia type: General endotracheal anesthesia Estimated blood loss: 50 cc Specimen: Gallbladder and stones Procedure: This is a 45-year-old -Martiniquais lady with admission for right upper quadrant pain and dilated common bile duct on preoperative studies. Preoperative bilirubin was elevated to 3 and on the subsequent day elevated to 3.3. MRCP documented a dilated common bile duct to 1.7 cm and a possible 2 mm stone was seen. Ultrasound also showed multiple stones in the gallbladder and a dilated common bile duct to 1.5 cm. Earlier today she had undergone an ERCP where the common duct was cleared of any stones. Patient is taken to the OR and after timeout are completed the abdomen was prepped with ChloraPrep and draped in a sterile fashion. A 5 mm incision is made in the supraumbilical position. A 5 mm Visiport is used to gain access to the peritoneal cavity. Abdomen is insufflated with CO2. 2 additional 5 mm ports were placed one in the right upper quadrant position . In the subxiphoid position a 12 mm port is placed. Later in the case a 3rd 5mm port was placed in the luq. Gallbladder graspers are used through the right subcostal ports. The gallbladder was retracted superiorly anteriorly and laterally. The peritoneal reflection and adventitia are dissected with a cautery hook and the harmonic scalpel to expose the cystic duct and cystic artery. However the cystic cleft is difficult to completely clear. The cystic artery is clipped and divided. A clip was placed on the cystic duct at its junction with the gallbladder. 2 clips were placed on the distal cystic duct. The cystic duct was then divided. The gallbladder was dissected off the gallbladder fossa It was then extracted after being placed in a specimen bag through the subxiphoid port. Hemostasis is good as and is improved with the Harmonic scalpel and electrocautery hook. Surgicel is placed into the gb fossa.The right upper quadrant irrigated with copious amounts of saline and then aspirated. Sponge and needle counts are noted to be correct at this time. A Jose Ramon Castelan system was used to close the subxiphoid incision with an 0 Vicryl suture. The skin is closed with 4-0 Monocryl and Dermabond. Patient tolerated procedure well.
--- NOTE | 2021-02-27 20:37 | Progress Note ---
Assessment and Plan - Patient Problems (1) Biliary obstruction Current Visit: Yes Status: Acute Plan to address problem: GI team consulted, abdominal ultrasound, MRCP pending. as per GI team, supportive care, continue medical management. Further care and evaluation as per GI team. Bowel rest, IV fluid resuscitation, pain control. (2) Obesity hypoventilation syndrome Current Visit: Yes Status: Acute Plan to address problem: Balanced diet, increase physical activity discharge, outpatient pulmonary follow-up for sleep study, outpatient bariatric surgery evaluation (3) Elevated LFTs Current Visit: Yes Status: Acute Plan to address problem: CMP, repeat CMP in a.m., supportive care. (4) DVT prophylaxis Current Visit: Yes Status: Acute Plan to address problem: SCD to bilateral lower extremities while in bed, patient is ambulatory (5) Advance care planning Current Visit: Yes Status: Acute Plan to address problem: Disease education conducted, care plan of progress, diagnosis discussed, prognosis discussed, patient is full code. Patient acknowledges understanding and agreement with care plan, +30 minutes. History Interval history: 45 YO Female HD #2 with Obesity Hypoventilation Syndrome, MO, Biliary Colic, GERD, Symptomatic Cholelithiasis. Pt is pending MRCP. No reported nursing events. Pt resting comfortably with mild improvement in current symptoms. Hospitalist Physical - Constitutional Vitals: Temp Pulse Resp BP Pulse Ox 98.1 F 98 H 18 187/108 95 02/27/21 14:24 02/27/21 14:24 02/27/21 14:24 02/27/21 14:24 02/27/21 14:24 General appearance: Present: mild distress, obese - EENT Eyes: Present: PERRL ENT: hearing intact - Neck Neck: Present: supple - Respiratory Respiratory: bilateral: CTA - Cardiovascular Rhythm: regular - Extremities Extremities: no ischemia Peripheral Pulses: within normal limits - Abdominal General gastrointestinal: soft, non-distended - Integumentary Integumentary: Present: clear, dry - Psychiatric Psychiatric: appropriate mood/affect, cooperative - Neurologic Neurologic: CNII-XII intact Results - Labs CBC & Chem 7: 02/25/21 14:16 02/26/21 02:57 Labs: Laboratory Last Values WBC 8.2 K/mm3 (4.5-11.0) 02/25/21 14:16 RBC 3.93 M/mm3 (3.65-5.03) 02/25/21 14:16 Hgb 11.7 gm/dl (10.1-14.3) 02/25/21 14:16 Hct 35.5 % (30.3-42.9) 02/25/21 14:16 MCV 90 fl (79-97) 02/25/21 14:16 MCH 30 pg (28-32) 02/25/21 14:16 MCHC 33 % (30-34) 02/25/21 14:16 RDW 15.2 % (13.2-15.2) 02/25/21 14:16 Plt Count 325 K/mm3 (140-440) 02/25/21 14:16 Lymph % (Auto) 17.9 % (13.4-35.0) 02/25/21 14:16 [place] % (Auto) 5.9 % (0.0-7.3) 02/25/21 14:16 Eos % (Auto) 0.8 % (0.0-4.3) 02/25/21 14:16 Baso % (Auto) 0.8 % (0.0-1.8) 02/25/21 14:16 Lymph # (Auto) 1.5 K/mm3 (1.2-5.4) 02/25/21 14:16 [place] # (Auto) 0.5 K/mm3 (0.0-0.8) 02/25/21 14:16 Eos # (Auto) 0.1 K/mm3 (0.0-0.4) 02/25/21 14:16 Baso # (Auto) 0.1 K/mm3 (0.0-0.1) 02/25/21 14:16 Seg Neutrophils % 74.6 % (40.0-70.0) H 02/25/21 14:16 Seg Neutrophils # 6.1 K/mm3 (1.8-7.7) 02/25/21 14:16 Sodium 139 mmol/L (137-145) 02/26/21 02:57 Potassium 3.9 mmol/L (3.6-5.0) 02/26/21 02:57 Chloride 104.4 mmol/L (98-107) 02/26/21 02:57 Carbon Dioxide 23 mmol/L (22-30) 02/26/21 02:57 Anion Gap 16 mmol/L 02/26/21 02:57 BUN 9 mg/dL (7-17) 02/26/21 02:57 Creatinine 0.6 mg/dL (0.6-1.2) 02/26/21 02:57 Estimated GFR > 60 ml/min 02/26/21 02:57 BUN/Creatinine Ratio 15 % 02/26/21 02:57 Glucose 126 mg/dL (65-100) H 02/26/21 02:57 POC Glucose 95 mg/dL (70-105) 02/26/21 18:14 Calcium 8.5 mg/dL (8.4-10.2) 02/26/21 02:57 Total Bilirubin 3.30 mg/dL (0.1-1.2) H 02/26/21 02:57 AST 247 units/L (5-40) H 02/26/21 02:57 ALT 345 units/L (7-56) H 02/26/21 02:57 Alkaline Phosphatase 147 units/L (35-129) H 02/26/21 02:57 Total Protein 7.0 g/dL (6.3-8.2) 02/26/21 02:57 Albumin 3.8 g/dL (3.9-5) L 02/26/21 02:57 Albumin/Globulin Ratio 1.2 % 02/26/21 02:57 Lipase 70 units/L (13-60) H 02/25/21 14:16 HCG, Qual Negative (Negative) 02/25/21 14:16 Urine Color Olga (Yellow) 02/25/21 Unknown Urine Turbidity Clear (Clear) 02/25/21 Unknown Urine pH 6.0 (5.0-7.0) 02/25/21 Unknown Ur Specific [place] 1.020 (1.003-1.030) 02/25/21 Unknown Urine Protein 30 mg/dl mg/dL (Negative) 02/25/21 Unknown Urine Glucose (UA) Neg mg/dL (Negative) 02/25/21 Unknown Urine Ketones 20 mg/dL (Negative) 02/25/21 Unknown Urine Blood Neg (Negative) 02/25/21 Unknown Urine Nitrite Neg (Negative) 02/25/21 Unknown Urine Bilirubin Sm (Negative) 02/25/21 Unknown Urine Ictotest Positive (Negative) 02/25/21 Unknown Urine Urobilinogen 4.0 mg/dL (<2.0) 02/25/21 Unknown Ur Leukocyte Esterase Neg (Negative) 02/25/21 Unknown Urine WBC (Auto) 1.0 /HPF (0.0-6.0) 02/25/21 Unknown Urine RBC (Auto) 4.0 /HPF (0.0-6.0) 02/25/21 Unknown U Epithel Cells (Auto) 1.0 /HPF (0-13.0) 02/25/21 Unknown Urine Mucus 3+ /HPF 02/25/21 Unknown Active Medications - Current Medications Current Medications: Generic Name Dose Route Start Last Admin Trade Name Freq PRN Reason Stop Dose Admin Albuterol 2.5 mg 02/25/21 19:36 Albuterol 2.5 Mg/3 Ml Nebu IH Q4HRT PRN Shortness Of Breath Hydromorphone HCl 0.5 mg 02/26/21 15:54 02/27/21 09:24 Hydromorphone 1 Mg/1 Ml Inj IV 0.5 mg Q6HR PRN Administration Pain , Severe (7-10) Hydromorphone HCl 0.25 mg 02/27/21 17:31 Hydromorphone 1 Mg/1 Ml Inj IV Q10MIN PRN Pain, Moderate (4-6) Hydromorphone HCl 0.5 mg 02/27/21 17:31 Hydromorphone 1 Mg/1 Ml Inj IV Q10MIN PRN Pain , Severe (7-10) Ibuprofen 600 mg 02/25/21 19:36 Ibuprofen 600 Mg Tab PO Q6H PRN Pain, Mild (1-3) Morphine Sulfate 2 mg 02/25/21 19:36 02/27/21 02:02 Morphine 2 Mg/1 Ml Inj IV 2 mg Q8H PRN Administration Pain, Moderate (4-6) Ondansetron HCl 4 mg 02/25/21 19:36 02/27/21 04:34 Ondansetron 4 Mg/2 Ml Inj IV 4 mg Q8H PRN Administration Nausea And Vomiting Ondansetron HCl 4 mg 02/27/21 17:31 Ondansetron 4 Mg/2 Ml Inj IV ONCE PRN Nausea And Vomiting Pantoprazole Sodium 40 mg 02/25/21 22:00 02/27/21 09:35 Pantoprazole 40 Mg Tab PO 40 mg BID LESLY Administration Sodium Chloride 10 ml 02/25/21 22:00 02/27/21 09:28 Sodium Chloride 0.9% 10 Ml Flush Syringe IV 10 ml BID LESLY Administration Sodium Chloride 10 ml 02/25/21 19:36 Sodium Chloride 0.9% 10 Ml Flush Syringe IV PRN PRN LINE FLUSH
--- NOTE | 2021-02-27 20:42 | Progress Note ---
Assessment and Plan - Patient Problems (1) Biliary obstruction Current Visit: Yes Status: Acute Plan to address problem: GI team consulted, abdominal ultrasound, MRCP pending. as per GI team, supportive care, continue medical management. Further care and evaluation as per GI team. Bowel rest, IV fluid resuscitation, pain control. (2) Obesity hypoventilation syndrome Current Visit: Yes Status: Acute Plan to address problem: Balanced diet, increase physical activity discharge, outpatient pulmonary follow-up for sleep study, outpatient bariatric surgery evaluation (3) Elevated LFTs Current Visit: Yes Status: Acute Plan to address problem: CMP, repeat CMP in a.m., supportive care. (4) DVT prophylaxis Current Visit: Yes Status: Acute Plan to address problem: SCD to bilateral lower extremities while in bed, patient is ambulatory (5) Advance care planning Current Visit: Yes Status: Acute Plan to address problem: Disease education conducted, care plan of progress, diagnosis discussed, prognosis discussed, patient is full code. Patient acknowledges understanding and agreement with care plan, +30 minutes. History Interval history: 45 YO Female HD #3 with Obesity Hypoventilation Syndrome, MO, Biliary Colic, GERD, Cholecystitis pending surgical intervention. Pt is pending sugical intervention. No reported nursing events. Pt resting comfortably with mild improvement but persistent symptoms. Hospitalist Physical - Constitutional Vitals: Temp Pulse Resp BP Pulse Ox 98.1 F 98 H 18 187/108 95 02/27/21 14:24 02/27/21 14:24 02/27/21 14:24 02/27/21 14:24 02/27/21 14:24 General appearance: Present: mild distress, obese - EENT Eyes: Present: PERRL, EOM intact ENT: hearing intact - Neck Neck: Present: supple - Respiratory Respiratory: bilateral: CTA - Cardiovascular Rhythm: regular Heart Sounds: Present: S1 & S2 - Extremities Extremities: no ischemia Extremity abnormal: edema Peripheral Pulses: within normal limits - Abdominal General gastrointestinal: soft, non-tender, non-distended - Integumentary Integumentary: Present: clear, dry - Psychiatric Psychiatric: cooperative - Neurologic Neurologic: CNII-XII intact Results - Labs CBC & Chem 7: 02/25/21 14:16 02/26/21 02:57 Labs: Laboratory Last Values WBC 8.2 K/mm3 (4.5-11.0) 02/25/21 14:16 RBC 3.93 M/mm3 (3.65-5.03) 02/25/21 14:16 Hgb 11.7 gm/dl (10.1-14.3) 02/25/21 14:16 Hct 35.5 % (30.3-42.9) 02/25/21 14:16 MCV 90 fl (79-97) 02/25/21 14:16 MCH 30 pg (28-32) 02/25/21 14:16 MCHC 33 % (30-34) 02/25/21 14:16 RDW 15.2 % (13.2-15.2) 02/25/21 14:16 Plt Count 325 K/mm3 (140-440) 02/25/21 14:16 Lymph % (Auto) 17.9 % (13.4-35.0) 02/25/21 14:16 [place] % (Auto) 5.9 % (0.0-7.3) 02/25/21 14:16 Eos % (Auto) 0.8 % (0.0-4.3) 02/25/21 14:16 Baso % (Auto) 0.8 % (0.0-1.8) 02/25/21 14:16 Lymph # (Auto) 1.5 K/mm3 (1.2-5.4) 02/25/21 14:16 [place] # (Auto) 0.5 K/mm3 (0.0-0.8) 02/25/21 14:16 Eos # (Auto) 0.1 K/mm3 (0.0-0.4) 02/25/21 14:16 Baso # (Auto) 0.1 K/mm3 (0.0-0.1) 02/25/21 14:16 Seg Neutrophils % 74.6 % (40.0-70.0) H 02/25/21 14:16 Seg Neutrophils # 6.1 K/mm3 (1.8-7.7) 02/25/21 14:16 Sodium 139 mmol/L (137-145) 02/26/21 02:57 Potassium 3.9 mmol/L (3.6-5.0) 02/26/21 02:57 Chloride 104.4 mmol/L (98-107) 02/26/21 02:57 Carbon Dioxide 23 mmol/L (22-30) 02/26/21 02:57 Anion Gap 16 mmol/L 02/26/21 02:57 BUN 9 mg/dL (7-17) 02/26/21 02:57 Creatinine 0.6 mg/dL (0.6-1.2) 02/26/21 02:57 Estimated GFR > 60 ml/min 02/26/21 02:57 BUN/Creatinine Ratio 15 % 02/26/21 02:57 Glucose 126 mg/dL (65-100) H 02/26/21 02:57 POC Glucose 95 mg/dL (70-105) 02/26/21 18:14 Calcium 8.5 mg/dL (8.4-10.2) 02/26/21 02:57 Total Bilirubin 3.30 mg/dL (0.1-1.2) H 02/26/21 02:57 AST 247 units/L (5-40) H 02/26/21 02:57 ALT 345 units/L (7-56) H 02/26/21 02:57 Alkaline Phosphatase 147 units/L (35-129) H 02/26/21 02:57 Total Protein 7.0 g/dL (6.3-8.2) 02/26/21 02:57 Albumin 3.8 g/dL (3.9-5) L 02/26/21 02:57 Albumin/Globulin Ratio 1.2 % 02/26/21 02:57 Lipase 70 units/L (13-60) H 02/25/21 14:16 HCG, Qual Negative (Negative) 02/25/21 14:16 Urine Color Olga (Yellow) 02/25/21 Unknown Urine Turbidity Clear (Clear) 02/25/21 Unknown Urine pH 6.0 (5.0-7.0) 02/25/21 Unknown Ur Specific [place] 1.020 (1.003-1.030) 02/25/21 Unknown Urine Protein 30 mg/dl mg/dL (Negative) 02/25/21 Unknown Urine Glucose (UA) Neg mg/dL (Negative) 02/25/21 Unknown Urine Ketones 20 mg/dL (Negative) 02/25/21 Unknown Urine Blood Neg (Negative) 02/25/21 Unknown Urine Nitrite Neg (Negative) 02/25/21 Unknown Urine Bilirubin Sm (Negative) 02/25/21 Unknown Urine Ictotest Positive (Negative) 02/25/21 Unknown Urine Urobilinogen 4.0 mg/dL (<2.0) 02/25/21 Unknown Ur Leukocyte Esterase Neg (Negative) 02/25/21 Unknown Urine WBC (Auto) 1.0 /HPF (0.0-6.0) 02/25/21 Unknown Urine RBC (Auto) 4.0 /HPF (0.0-6.0) 02/25/21 Unknown U Epithel Cells (Auto) 1.0 /HPF (0-13.0) 02/25/21 Unknown Urine Mucus 3+ /HPF 02/25/21 Unknown Active Medications - Current Medications Current Medications: Generic Name Dose Route Start Last Admin Trade Name Freq PRN Reason Stop Dose Admin Albuterol 2.5 mg 02/25/21 19:36 Albuterol 2.5 Mg/3 Ml Nebu IH Q4HRT PRN Shortness Of Breath Hydromorphone HCl 0.5 mg 02/26/21 15:54 02/27/21 09:24 Hydromorphone 1 Mg/1 Ml Inj IV 0.5 mg Q6HR PRN Administration Pain , Severe (7-10) Hydromorphone HCl 0.25 mg 02/27/21 17:31 Hydromorphone 1 Mg/1 Ml Inj IV Q10MIN PRN Pain, Moderate (4-6) Hydromorphone HCl 0.5 mg 02/27/21 17:31 Hydromorphone 1 Mg/1 Ml Inj IV Q10MIN PRN Pain , Severe (7-10) Ibuprofen 600 mg 02/25/21 19:36 Ibuprofen 600 Mg Tab PO Q6H PRN Pain, Mild (1-3) Morphine Sulfate 2 mg 02/25/21 19:36 02/27/21 02:02 Morphine 2 Mg/1 Ml Inj IV 2 mg Q8H PRN Administration Pain, Moderate (4-6) Ondansetron HCl 4 mg 02/25/21 19:36 02/27/21 04:34 Ondansetron 4 Mg/2 Ml Inj IV 4 mg Q8H PRN Administration Nausea And Vomiting Ondansetron HCl 4 mg 02/27/21 17:31 Ondansetron 4 Mg/2 Ml Inj IV ONCE PRN Nausea And Vomiting Pantoprazole Sodium 40 mg 02/25/21 22:00 02/27/21 09:35 Pantoprazole 40 Mg Tab PO 40 mg BID LESLY Administration Sodium Chloride 10 ml 02/25/21 22:00 02/27/21 09:28 Sodium Chloride 0.9% 10 Ml Flush Syringe IV 10 ml BID LESLY Administration Sodium Chloride 10 ml 02/25/21 19:36 Sodium Chloride 0.9% 10 Ml Flush Syringe IV PRN PRN LINE FLUSH
[2021-02-27 21:29] LABS: Hematocrit 33.9 % (30.3-42.9); Mean Corpuscular HGB Conc 32 % (30-34); Mean Corpuscular Volume 91 fl (79-97); Platelet Count 248 K/mm3 (140-440); Red Blood Count 3.73 M/mm3 (3.65-5.03); Red Cell Distribution Width 14.9 % (13.2-15.2)
[2021-02-27 22:56] LABS: Basophils % (Manual) 0 % (0.0-1.8); Eosinophils % (Manual) 0 % (0.0-4.3); Total Cells Counted 100
[2021-02-27 22:57] LABS: Schistocytes Rare
[2021-02-28 07:18] LABS: Alanine Aminotransferase 417 units/L (7-56); Albumin 3.7 g/dL (3.9-5); Blood Urea Nitrogen 9 mg/dL (7-17); Calcium 8.9 mg/dL (8.4-10.2); Hemolysis Index 4
[2021-02-28 07:30] LABS: BUN/Creatinine Ratio 15
[2021-02-28] MEDS: PANTOPRAZOLE 40 MG TAB PO SCH (10:52)
--- NOTE | 2021-02-28 12:21 | Gastroenterology Progress Note ---
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 - Good clinical recovery, no signs of pancreatitis. - OK to advance diet to regular. - We will sign off; please call if needed. (2) Productive cough Current Visit: Yes Status: Acute Plan to address problem: - Given recent intubation x 2 for surgery as well as MAC during ERCP, we will get a CXray, but since no fever, hold on abx. Subjective Date of service: 02/28/21 Principal diagnosis: Ampullary stenosis Interval history: The patient feels well after her ERCP and CCY. She has had a mildly productive cough but no fevers, and is tolerating clear liquids without pain. Objective - Constitutional Vitals: Temp Pulse Resp BP Pulse Ox 98.6 F 96 H 18 138/86 99 02/28/21 07:55 02/28/21 07:55 02/28/21 07:55 02/28/21 07:55 02/28/21 07:55 General appearance: no acute distress - Respiratory Respiratory effort: normal Respiratory: bilateral: CTA - Cardiovascular Rhythm: regular Heart Sounds: Present: S1 & S2 - Gastrointestinal General gastrointestinal: Present: soft, tender (Minimal tenderness), non- distended - Labs CBC & Chem 7: 02/27/21 21:20 02/28/21 05:34 Labs: Laboratory Results - last 24 hr 02/27/21 02/28/21 21:20 05:34 WBC 13.1 H RBC 3.73 Hgb 11.0 Hct 33.9 MCV 91 MCH 29 MCHC 32 RDW 14.9 Plt Count 248 Add Manual Diff Complete Total Counted 100 Seg Neutrophils % Urogynecology Physician Seg Neuts % (Manual) 92.0 H Band Neutrophils % 0 Lymphocytes % (Manual) 5.0 L Reactive Lymphs % (Man) 0 Monocytes % (Manual) 3.0 Eosinophils % (Manual) 0 Basophils % (Manual) 0 Metamyelocytes % 0 Myelocytes % 0 Promyelocytes % 0 Blast Cells % 0 Nucleated RBC % Not Reportable Seg Neutrophils # Man 12.1 H Band Neutrophils # 0.0 Lymphocytes # (Manual) 0.7 L Abs React Lymphs (Man) 0.0 Monocytes # (Manual) 0.4 Eosinophils # (Manual) 0.0 Basophils # (Manual) 0.0 Metamyelocytes # 0.0 Myelocytes # 0.0 Promyelocytes # 0.0 Blast Cells # 0.0 WBC Morphology Not Reportable Hypersegmented Neuts Not Reportable Hyposegmented Neuts Not Reportable Hypogranular Neuts Not Reportable Smudge Cells Not Reportable Toxic Granulation Not Reportable Toxic Vacuolation Not Reportable Dohle Bodies Not Reportable Pelger-Huet Anomaly Not Reportable Ryan Rods Not Reportable Platelet Estimate Not Reportable Clumped Platelets Not Reportable Plt Clumps, EDTA Not Reportable Large Platelets Not Reportable Giant Platelets Not Reportable Platelet Satelliting Not Reportable Plt Morphology Comment Not Reportable RBC Morphology Not Reportable Dimorphic RBCs Not Reportable Polychromasia Not Reportable Hypochromasia Not Reportable Poikilocytosis Not Reportable Anisocytosis Not Reportable Microcytosis Not Reportable Macrocytosis Not Reportable Spherocytes Not Reportable Pappenheimer Bodies Not Reportable Sickle Cells Not Reportable Target Cells Not Reportable Tear Drop Cells Not Reportable Ovalocytes Not Reportable Helmet Cells Not Reportable Garcia-Mack Bodies Not Reportable [place] Rings Not Reportable Michelle Cells Not Reportable Bite Cells Not Reportable Crenated Cell Not Reportable Elliptocytes Not Reportable Acanthocytes (Spur) Not Reportable Rouleaux Not Reportable Hemoglobin C Crystals Not Reportable Schistocytes Rare Malaria parasites Not Reportable Demetrio Bodies Not Reportable Hem Pathologist Commnt No Sodium 141 Potassium 4.3 Chloride 104.4 Carbon Dioxide 23 Anion Gap 18 BUN 9 Creatinine 0.6 Estimated GFR > 60 BUN/Creatinine Ratio 15 Glucose 129 H Calcium 8.9 Total Bilirubin 1.30 H AST 196 H ALT 417 H Alkaline Phosphatase 182 H Total Protein 6.3 Albumin 3.7 L Albumin/Globulin Ratio 1.4
[2021-02-28] MEDS: MORPHINE 2 MG/1 ML INJ IV PRN (14:04)
--- NOTE | 2021-02-28 14:40 | XRay Report ---
CHEST 2 VIEWS INDICATION / CLINICAL INFORMATION: cough. COMPARISON: 02/10/2019 FINDINGS: SUPPORT DEVICES: None. HEART / MEDIASTINUM: No significant abnormality. LUNGS / PLEURA: No significant pulmonary or pleural abnormality. No pneumothorax. ADDITIONAL FINDINGS: No significant additional findings. IMPRESSION: 1. No acute findings. Signer Name: Ottoniel Ho MD Signed: 02/28/2021 2:36 PM Workstation Name: [id number]
--- NOTE | 2021-02-28 15:32 | Progress Note ---
Assessment and Plan - Patient Problems (1) Biliary obstruction Current Visit: Yes Status: Acute Plan to address problem: GI team consulted, patient is status post MRCP and surgical intervention. Patient resting comfortably. Continue pain control. Discharge planning. (2) Obesity hypoventilation syndrome Current Visit: Yes Status: Acute Plan to address problem: Balanced diet, increase physical activity discharge, outpatient pulmonary follow-up for sleep study, outpatient bariatric surgery evaluation (3) Elevated LFTs Current Visit: Yes Status: Acute Plan to address problem: CMP, repeat CMP in a.m., supportive care. (4) DVT prophylaxis Current Visit: Yes Status: Acute Plan to address problem: SCD to bilateral lower extremities while in bed, patient is ambulatory (5) Advance care planning Current Visit: Yes Status: Acute Plan to address problem: Disease education conducted, care plan of progress, diagnosis discussed, prognosis discussed, patient is full code. Patient acknowledges understanding and agreement with care plan, +30 minutes. History Interval history: 45 YO Female HD #4 with Obesity Hypoventilation Syndrome, [place], Biliary Colic, GERD, Cholecystitis s/p surgical intervention. No reported nursing events. Pt resting comfortably patient tolerating clear liquid diet. Discharge planning when patient is able to tolerate oral diet. Hospitalist Physical - Constitutional Vitals: Temp Pulse Resp BP Pulse Ox 98.8 F 105 H 18 136/81 97 02/28/21 11:41 02/28/21 11:41 02/28/21 11:41 02/28/21 11:41 02/28/21 12:00 General appearance: Present: mild distress, obese - EENT Eyes: Present: PERRL, EOM intact ENT: hearing intact - Neck Neck: Present: supple - Respiratory Respiratory effort: normal Respiratory: bilateral: CTA - Cardiovascular Rhythm: regular - Extremities Extremities: no ischemia Peripheral Pulses: within normal limits - Abdominal General gastrointestinal: soft, other (Appropriately tender) - Integumentary Integumentary: Present: clear, dry - Psychiatric Psychiatric: appropriate mood/affect, cooperative - Neurologic Neurologic: CNII-XII intact Results - Labs CBC & Chem 7: 02/27/21 21:20 02/28/21 05:34 Labs: Laboratory Last Values WBC 13.1 K/mm3 (4.5-11.0) H 02/27/21 21:20 RBC 3.73 M/mm3 (3.65-5.03) 02/27/21 21:20 Hgb 11.0 gm/dl (10.1-14.3) 02/27/21 21:20 Hct 33.9 % (30.3-42.9) 02/27/21 21:20 MCV 91 fl (79-97) 02/27/21 21:20 MCH 29 pg (28-32) 02/27/21 21:20 MCHC 32 % (30-34) 02/27/21 21:20 RDW 14.9 % (13.2-15.2) 02/27/21 21:20 Plt Count 248 K/mm3 (140-440) 02/27/21 21:20 Lymph % (Auto) 17.9 % (13.4-35.0) 02/25/21 14:16 [place] % (Auto) 5.9 % (0.0-7.3) 02/25/21 14:16 Eos % (Auto) 0.8 % (0.0-4.3) 02/25/21 14:16 Baso % (Auto) 0.8 % (0.0-1.8) 02/25/21 14:16 Lymph # (Auto) 1.5 K/mm3 (1.2-5.4) 02/25/21 14:16 [place] # (Auto) 0.5 K/mm3 (0.0-0.8) 02/25/21 14:16 Eos # (Auto) 0.1 K/mm3 (0.0-0.4) 02/25/21 14:16 Baso # (Auto) 0.1 K/mm3 (0.0-0.1) 02/25/21 14:16 Add Manual Diff Complete 02/27/21 21:20 Total Counted 100 02/27/21 21:20 Seg Neutrophils % Sound Recordist 02/27/21 21:20 Seg Neuts % (Manual) 92.0 % (40.0-70.0) H 02/27/21 21:20 Band Neutrophils % 0 % 02/27/21 21:20 Lymphocytes % (Manual) 5.0 % (13.4-35.0) L 02/27/21 21:20 Reactive Lymphs % (Man) 0 % 02/27/21 21:20 Monocytes % (Manual) 3.0 % (0.0-7.3) 02/27/21 21:20 Eosinophils % (Manual) 0 % (0.0-4.3) 02/27/21 21:20 Basophils % (Manual) 0 % (0.0-1.8) 02/27/21 21:20 Metamyelocytes % 0 % 02/27/21 21:20 Myelocytes % 0 % 02/27/21 21:20 Promyelocytes % 0 % 02/27/21 21:20 Blast Cells % 0 % 02/27/21 21:20 Nucleated RBC % Not Reportable 02/27/21 21:20 Seg Neutrophils # 6.1 K/mm3 (1.8-7.7) 02/25/21 14:16 Seg Neutrophils # Man 12.1 K/mm3 (1.8-7.7) H 02/27/21 21:20 Band Neutrophils # 0.0 K/mm3 02/27/21 21:20 Lymphocytes # (Manual) 0.7 K/mm3 (1.2-5.4) L 02/27/21 21:20 Abs React Lymphs (Man) 0.0 K/mm3 02/27/21 21:20 Monocytes # (Manual) 0.4 K/mm3 (0.0-0.8) 02/27/21 21:20 Eosinophils # (Manual) 0.0 K/mm3 (0.0-0.4) 02/27/21 21:20 Basophils # (Manual) 0.0 K/mm3 (0.0-0.1) 02/27/21 21:20 Metamyelocytes # 0.0 K/mm3 02/27/21 21:20 Myelocytes # 0.0 K/mm3 02/27/21 21:20 Promyelocytes # 0.0 K/mm3 02/27/21 21:20 Blast Cells # 0.0 K/mm3 02/27/21 21:20 WBC Morphology Not Reportable 02/27/21 21:20 Hypersegmented Neuts Not Reportable 02/27/21 21:20 Hyposegmented Neuts Not Reportable 02/27/21 21:20 Hypogranular Neuts Not Reportable 02/27/21 21:20 Smudge Cells Not Reportable 02/27/21 21:20 Toxic Granulation Not Reportable 02/27/21 21:20 Toxic Vacuolation Not Reportable 02/27/21 21:20 Dohle Bodies Not Reportable 02/27/21 21:20 Pelger-Huet Anomaly Not Reportable 02/27/21 21:20 Ryan Rods Not Reportable 02/27/21 21:20 Platelet Estimate Not Reportable 02/27/21 21:20 Clumped Platelets Not Reportable 02/27/21 21:20 Plt Clumps, EDTA Not Reportable 02/27/21 21:20 Large Platelets Not Reportable 02/27/21 21:20 Giant Platelets Not Reportable 02/27/21 21:20 Platelet Satelliting Not Reportable 02/27/21 21:20 Plt Morphology Comment Not Reportable 02/27/21 21:20 RBC Morphology Not Reportable 02/27/21 21:20 Dimorphic RBCs Not Reportable 02/27/21 21:20 Polychromasia Not Reportable 02/27/21 21:20 Hypochromasia Not Reportable 02/27/21 21:20 Poikilocytosis Not Reportable 02/27/21 21:20 Anisocytosis Not Reportable 02/27/21 21:20 Microcytosis Not Reportable 02/27/21 21:20 Macrocytosis Not Reportable 02/27/21 21:20 Spherocytes Not Reportable 02/27/21 21:20 Pappenheimer Bodies Not Reportable 02/27/21 21:20 Sickle Cells Not Reportable 02/27/21 21:20 Target Cells Not Reportable 02/27/21 21:20 Tear Drop Cells Not Reportable 02/27/21 21:20 Ovalocytes Not Reportable 02/27/21 21:20 Helmet Cells Not Reportable 02/27/21 21:20 [place] Bodies Not Reportable 02/27/21 21:20 [place] Rings Not Reportable 02/27/21 21:20 Michelle Cells Not Reportable 02/27/21 21:20 Bite Cells Not Reportable 02/27/21 21:20 Crenated Cell Not Reportable 02/27/21 21:20 Elliptocytes Not Reportable 02/27/21 21:20 Acanthocytes (Spur) Not Reportable 02/27/21 21:20 Rouleaux Not Reportable 02/27/21 21:20 Hemoglobin C Crystals Not Reportable 02/27/21 21:20 Schistocytes Rare 02/27/21 21:20 Malaria parasites Not Reportable 02/27/21 21:20 Demetrio Bodies Not Reportable 02/27/21 21:20 Hem Pathologist Commnt No 02/27/21 21:20 Sodium 141 mmol/L (137-145) 02/28/21 05:34 Potassium 4.3 mmol/L (3.6-5.0) 02/28/21 05:34 Chloride 104.4 mmol/L (98-107) 02/28/21 05:34 Carbon Dioxide 23 mmol/L (22-30) 02/28/21 05:34 Anion Gap 18 mmol/L 02/28/21 05:34 BUN 9 mg/dL (7-17) 02/28/21 05:34 Creatinine 0.6 mg/dL (0.6-1.2) 02/28/21 05:34 Estimated GFR > 60 ml/min 02/28/21 05:34 BUN/Creatinine Ratio 15 % 02/28/21 05:34 Glucose 129 mg/dL (65-100) H 02/28/21 05:34 POC Glucose 95 mg/dL (70-105) 02/26/21 18:14 Calcium 8.9 mg/dL (8.4-10.2) 02/28/21 05:34 Total Bilirubin 1.30 mg/dL (0.1-1.2) H 02/28/21 05:34 AST 196 units/L (5-40) H 02/28/21 05:34 ALT 417 units/L (7-56) H 02/28/21 05:34 Alkaline Phosphatase 182 units/L (35-129) H 02/28/21 05:34 Total Protein 6.3 g/dL (6.3-8.2) 02/28/21 05:34 Albumin 3.7 g/dL (3.9-5) L 02/28/21 05:34 Albumin/Globulin Ratio 1.4 % 02/28/21 05:34 Lipase 70 units/L (13-60) H 02/25/21 14:16 HCG, Qual Negative (Negative) 02/25/21 14:16 Urine Color Olga (Yellow) 02/25/21 Unknown Urine Turbidity Clear (Clear) 02/25/21 Unknown Urine pH 6.0 (5.0-7.0) 02/25/21 Unknown Ur Specific [place] 1.020 (1.003-1.030) 02/25/21 Unknown Urine Protein 30 mg/dl mg/dL (Negative) 02/25/21 Unknown Urine Glucose (UA) Neg mg/dL (Negative) 02/25/21 Unknown Urine Ketones 20 mg/dL (Negative) 02/25/21 Unknown Urine Blood Neg (Negative) 02/25/21 Unknown Urine Nitrite Neg (Negative) 02/25/21 Unknown Urine Bilirubin Sm (Negative) 02/25/21 Unknown Urine Ictotest Positive (Negative) 02/25/21 Unknown Urine Urobilinogen 4.0 mg/dL (<2.0) 02/25/21 Unknown Ur Leukocyte Esterase Neg (Negative) 02/25/21 Unknown Urine WBC (Auto) 1.0 /HPF (0.0-6.0) 02/25/21 Unknown Urine RBC (Auto) 4.0 /HPF (0.0-6.0) 02/25/21 Unknown U Epithel Cells (Auto) 1.0 /HPF (0-13.0) 02/25/21 Unknown Urine Mucus 3+ /HPF 02/25/21 Unknown [place]/IV: Voiding Method Toilet Active Medications - Current Medications Current Medications: Generic Name Dose Route Start Last Admin Trade Name Freq PRN Reason Stop Dose Admin Albuterol 2.5 mg 02/25/21 19:36 Albuterol 2.5 Mg/3 Ml Nebu IH Q4HRT PRN Shortness Of Breath Hydromorphone HCl 0.5 mg 02/26/21 15:54 02/27/21 09:24 Hydromorphone 1 Mg/1 Ml Inj IV 0.5 mg Q6HR PRN Administration Pain , Severe (7-10) Hydromorphone HCl 0.25 mg 02/27/21 17:31 Hydromorphone 1 Mg/1 Ml Inj IV 02/28/21 17:30 Q10MIN PRN Pain, Moderate (4-6) Hydromorphone HCl 0.5 mg 02/27/21 17:31 Hydromorphone 1 Mg/1 Ml Inj IV 02/28/21 23:00 Q10MIN PRN Pain , Severe (7-10) Morphine Sulfate 2 mg 02/25/21 19:36 02/28/21 14:04 Morphine 2 Mg/1 Ml Inj IV 2 mg Q8H PRN Administration Pain, Moderate (4-6) Ondansetron HCl 4 mg 02/25/21 19:36 02/27/21 04:34 Ondansetron 4 Mg/2 Ml Inj IV 4 mg Q8H PRN Administration Nausea And Vomiting Ondansetron HCl 4 mg 02/27/21 17:31 Ondansetron 4 Mg/2 Ml Inj IV ONCE PRN Nausea And Vomiting Pantoprazole Sodium 40 mg 03/01/21 07:30 Pantoprazole 40 Mg Tab PO QDAC LESLY Sodium Chloride 10 ml 02/25/21 22:00 02/28/21 10:52 Sodium Chloride 0.9% 10 Ml Flush Syringe IV 10 ml BID LESLY Administration Sodium Chloride 10 ml 02/25/21 19:36 Sodium Chloride 0.9% 10 Ml Flush Syringe IV PRN PRN LINE FLUSH
[2021-02-28 16:37] VITALS: BP 141/84
--- NOTE | 2021-02-28 17:31 | Discharge Summary ---
Providers - Providers Date of Admission: 02/26/21 11:35 Attending physician: ANDREW SHEA 02/25/21 17:16 Consult to Physician [CONS] Stat Comment: Consulting Provider: RADHA GONZALEZ Physician Instructions: Reason For Exam: elevated lfts, enlarged CBD 02/26/21 18:55 Consult to Physician [CONS] Routine Comment: Consulting Provider: JERRY OSBORNE Physician Instructions: Reason For Exam: gallstones Primary care physician: GO CHAO Hospitalization Condition: Fair Disposition: 30 STILL A PATIENT - Discharge Diagnoses (1) Biliary obstruction Status: Acute (2) Obesity hypoventilation syndrome Status: Acute (3) Elevated LFTs Status: Acute (4) DVT prophylaxis Status: Acute (5) Advance care planning Status: Acute Exam - Constitutional Vitals: Temp Pulse Resp BP Pulse Ox 99.3 F 107 H 18 141/84 99 02/28/21 16:32 02/28/21 16:32 02/28/21 16:32 02/28/21 16:32 02/28/21 16:32 Plan Follow up with: GO CHAO MD [Primary Care Provider] - 3-5 Days IVETTE EMANUEL MD [Staff Physician] - 7 Days Prescriptions: oxyCODONE /ACETAMINOPHEN [Percocet 5/325] 1 tab PO Q6HR PRN #20 tablet PRN Reason: Pain
--- NOTE | 2021-02-28 17:49 | Progress Note ---
Assessment and Plan This patient is postop day status post laparoscopic cholecystectomy. She had obstructive jaundice preoperatively. Between having an ERCP and laparoscopic cholecystectomy done yesterday she is much improved. Her bilirubin now is 1.5. It was 3.3. She is okay to discharge at this time. Subjective Date of service: 02/28/21 Patient Reports: Positive: no new complaints, feels better, tolerating a regular diet Narrative: This patient is postop day status post laparoscopic cholecystectomy. She had obstructive jaundice preoperatively. Between having an ERCP and laparoscopic cholecystectomy done yesterday she is much improved. Her bilirubin now is 1.5. It was 3.3. She is okay to discharge at this time. Objective Vital Signs - 12hr 02/28/21 02/28/21 02/28/21 07:55 11:41 12:00 Temperature 98.6 F 98.8 F Pulse Rate 96 H 105 H Respiratory 18 18 Rate Blood Pressure 138/86 136/81 O2 Sat by Pulse 99 99 97 Oximetry 02/28/21 16:32 Temperature 99.3 F Pulse Rate 107 H Respiratory 18 Rate Blood Pressure 141/84 O2 Sat by Pulse 99 Oximetry - Labs 02/27/21 21:20 02/28/21 05:34 Diabetes panel 02/28/21 Range/Units 05:34 Sodium 141 (137-145) mmol/L Potassium 4.3 (3.6-5.0) mmol/L Chloride 104.4 (98-107) mmol/L Carbon Dioxide 23 (22-30) mmol/L BUN 9 (7-17) mg/dL Creatinine 0.6 (0.6-1.2) mg/dL Glucose 129 H (65-100) mg/dL Calcium 8.9 (8.4-10.2) mg/dL AST 196 H (5-40) units/L ALT 417 H (7-56) units/L Alkaline Phosphatase 182 H (35-129) units/L Total Protein 6.3 (6.3-8.2) g/dL Albumin 3.7 L (3.9-5) g/dL Calcium panel 02/28/21 Range/Units 05:34 Calcium 8.9 (8.4-10.2) mg/dL Albumin 3.7 L (3.9-5) g/dL Pituitary panel 02/28/21 Range/Units 05:34 Sodium 141 (137-145) mmol/L Potassium 4.3 (3.6-5.0) mmol/L Chloride 104.4 (98-107) mmol/L Carbon Dioxide 23 (22-30) mmol/L BUN 9 (7-17) mg/dL Creatinine 0.6 (0.6-1.2) mg/dL Glucose 129 H (65-100) mg/dL Calcium 8.9 (8.4-10.2) mg/dL Adrenal panel 02/28/21 Range/Units 05:34 Sodium 141 (137-145) mmol/L Potassium 4.3 (3.6-5.0) mmol/L Chloride 104.4 (98-107) mmol/L Carbon Dioxide 23 (22-30) mmol/L BUN 9 (7-17) mg/dL Creatinine 0.6 (0.6-1.2) mg/dL Glucose 129 H (65-100) mg/dL Calcium 8.9 (8.4-10.2) mg/dL Total Bilirubin 1.30 H (0.1-1.2) mg/dL AST 196 H (5-40) units/L ALT 417 H (7-56) units/L Alkaline Phosphatase 182 H (35-129) units/L Total Protein 6.3 (6.3-8.2) g/dL Albumin 3.7 L (3.9-5) g/dL
[2021-03-01] MEDS ORDERED: PANTOPRAZOLE 40 MG TAB PO SCH (07:30)
== END 2021-02-28 18:28 | disposition home or self-care (01) | DRG 418 ==
LOC: ED 12:30 → 3A 19:36 → 4A 02-26 06:45 → OBSVTOIN 02-26 11:35
PROVIDERS: ADMIT Internal Medicine; ATTEND Internal Medicine
PROC: 0FT44ZZ Resection of Gallbladder, Percutaneous Endoscopic Approach (ICD-10-PCS; principal; 2021-02-27)
PROC: 0F798ZZ Dilation of Common Bile Duct, Via Natural or Artificial Opening Endoscopic (ICD-10-PCS; 2021-02-27)
PROC: BF131ZZ Fluoroscopy of Gallbladder and Bile Ducts using Low Osmolar Contrast (ICD-10-PCS; 2021-02-27)
DX: K80.45 Calculus of bile duct with chronic cholecystitis with obstruction (principal); E66.2 Morbid (severe) obesity with alveolar hypoventilation; Z68.41 Body mass index [BMI] 40.0-44.9, adult; R79.89 Other specified abnormal findings of blood chemistry; K21.9 Gastro-esophageal reflux disease without esophagitis; Z82.49 Family history of ischemic heart disease and other diseases of the circulatory system
CPT/HCPCS: 36415; 71046; 74181; 74328; 76705; 80053; 81001; 82962; 83690; 84703; 85007; 85025; 88304; G0378; J1815; J3490; J7120; Q0162; C1726; J0690; J1100; J1170; J1610; J2250; J2270; J2405; J2704; J2710; J7030; Q9967